=== PATIENT | female | born 1940 | race Caucasian/White ===

== ENCOUNTER → 2016-06-11 08:38 | Outpatient (CLI) | payer MEDICARE ==
[2014-05-16 15:22] VITALS: BMI 14.7
[~2016-06-11 08:38] MED LIST: IBUPROFEN200 MG PO; IPRAT-ALBUT 0.5-3 ML INH; LEVAQUIN750 MG PO; MEDROL DOSE PACK4 MG PO; MUCINEX600 MG PO
--- NOTE | 2016-06-23 08:21 | EMG ---
PATIENT:MARCO NAVA DATE OF SERVICE: 06/11/16 MEDICAL RECORD: [id number] DATE OF : 42 LOCATION: [facility] ADMISSION DATE: REFERRING PHYSICIAN: JENNA MELÉNDEZ MD INTERPRETING PHYSICIAN: THIERRY GONGORA MD DATE OF SERVICE: 06/11/[address] Meléndez as an outpatient. DATE OF EXAMINATION: 06/11/2016 ELECTROMYOGRAPHIC DATA: Electromyographic examination is limited to both upper extremities. In the right upper extremity, right median motor stimulation elicits a compound motor action potential with a distal latency of 2.8 milliseconds, peak amplitude of 9 millivolts and calculated conduction velocity of 54 meters per second. Right ulnar motor stimulation elicits a compound motor action potential with a distal latency of 2.8 milliseconds, peak amplitude of 7 millivolts, and calculated conduction velocity of 70 meters per second. Right ulnar motor stimulation across the elbow fails to elicit evidence of conduction block at this level. Antidromic right median sensory stimulation elicits a response with a distal latency of 3.3 milliseconds, amplitude of 15 microvolts and calculated conduction velocity of 56 meters per second. Antidromic right ulnar sensory stimulation elicits a response with a distal latency of 3.4 milliseconds, amplitude of 19 microvolts and calculated conduction velocity of 65 meters per second. The right median F wave has a latency of 25 milliseconds. In the left upper extremity, left median motor stimulation elicits a compound motor action potential with a distal latency of 3.2 milliseconds, peak amplitude of 8 millivolts and calculated conduction velocity of 62 meters per second. Left ulnar motor stimulation elicits a compound motor action potential with a distal latency of 2.6 milliseconds, peak amplitude of 6 millivolts, and calculated conduction velocity of 58 meters per second. Left ulnar motor stimulation across the elbow fails to elicit evidence of conduction block at this level. Antidromic left median sensory stimulation elicits a response with a distal latency of 3.2 milliseconds, amplitude of 11 microvolts and calculated conduction velocity of 62 meters per second. Antidromic left ulnar sensory stimulation elicits a response with a distal latency of 3.4 milliseconds, amplitude of 8 microvolts and calculated conduction velocity of 58 meters per second. The left median F wave has a latency of 26 milliseconds. Needle electrode examination is limited to both upper extremities as well. Muscles interrogated include the abductor pollicis brevis, first dorsal interosseous, abductor digiti minimi, pronator teres, biceps brachii, triceps and deltoid. There is no abnormality of insertional activity and no abnormal spontaneous activity is seen in all muscles interrogated. Motor unit potential morphology and the pattern of motor unit potential firing and recruitment is normal in all muscles sampled. INTERPRETATION: Electromyographic examination of both upper extremities is normal. There is no electrical evidence of a cervical radiculopathy or other lesion of the lower motor neuron in the upper extremities at this time. There is no evidence of active denervation. ELECTROMYGRAM/NERVE CONDUCTION [id number] MARCO NAVA TRANSINT:[id number] Voice Confirmation ID: [id number] DOCUMENT ID: [id number] THIERRY GONGORA MD at 0821 CC: [id number] DICTATION DATE: 06/11/1632 SUPERVISOR TICKET SALES: 06/12/16 0039 DEP CLI 06/11/16 [id number] [place] [address]
== END | disposition home or self-care (01) ==
LOC: D.CN 04-28 08:30
DX: G60.3 Idiopathic progressive neuropathy (principal)

== ENCOUNTER → 2016-09-01 07:13 | Outpatient (CLI) | payer MEDICARE ==
[2014-05-16 15:22] VITALS: BMI 14.7
[2016-09-01 07:44] LABS: BASOPHILS 0.4 % (0-2); EOSINOPHILS 1.3 % (0-7); HEMOGLOBIN 14.1 g/dL (12-16); IMMATURE GRANULOCYTES 0.1 % (0-5); MCH 29.5 pg (26.0-34.0); MCV 92.1 fL (80.0-100.0); MEAN PLATELET VOLUME 9.6 fL (7.4-10.4); MONOCYTES 8.4 % (2-11); NEUTROPHILS 67.8 % (40-80); PLATELET COUNT 306 10x3/uL (130-400); RBC 4.78 10x6/uL (4.00-5.40); RDW 13.5 % (11.5-14.5); WBC 6.8 10x3/uL (4.8-10.8)
[2016-09-01 08:15] LABS: ALBUMIN 3.6 g/dL (3.4-5.0); ANION GAP 9.4 mmol/L (8-16); BILIRUBIN - TOTAL 0.53 mg/dL (0.2-1.3); CALCIUM 9.1 mg/dL (8.5-10.1); CREATININE - SERUM 0.8 mg/dL (0.6-1.3); POTASSIUM - SERUM 3.4 mmol/L (3.5-5.1); PROTEIN - SERUM 7.1 g/dL (6.4-8.2); T4 THYROXINE 11.1 ug/dL (4.7-13.3); THYROID STIMULATING HORMONE 0.41 uIU/mL (0.36-3.74)
[2016-09-02 08:21] LABS: RAPID PLASMA REAGIN Non Reactive (Non Reactive)
[2016-09-02 10:20] LABS: FOLATE (FOLIC ACID) - SERUM 19.3 ng/mL (>3.0)
== END | disposition home or self-care (01) ==
LOC: D.LAB 07:13 → D.MRI 08:30
PROVIDERS: Psychiatry & Neurology Neurology
DX: R29.2 Abnormal reflex (principal); R20.1 Hypoesthesia of skin

== ENCOUNTER → 2016-09-07 12:32 | Outpatient (CLI) | payer MEDICARE ==
[2014-05-16 15:22] VITALS: BMI 14.7
== END | disposition home or self-care (01) ==
LOC: D.RAD 12:32
DX: M48.02 Spinal stenosis, cervical region (principal)

== ENCOUNTER 2016-09-29 05:05 | Inpatient (IN) | payer MEDICARE ==
[2016-09-28 17:36] LABS: BASOPHILS 0.4 % (0-2); EOSINOPHILS 0.9 % (0-7); HEMATOCRIT 48.3 % (36.0-48.0); HEMOGLOBIN 15.8 g/dL (12-16); IMMATURE GRANULOCYTES 0.2 % (0-5); LYMPHOCYTES 23.8 % (15-50); MCHC 32.7 g/dL (31.0-37.0); MCV 91.7 fL (80.0-100.0); MEAN PLATELET VOLUME 9.9 fL (7.4-10.4); MONOCYTES 7.6 % (2-11); NEUTROPHILS 67.1 % (40-80); RBC 5.27 10x6/uL (4.00-5.40); RDW 13.2 % (11.5-14.5); WBC 10.1 10x3/uL (4.8-10.8)
[2016-09-28 18:14] LABS: PLATELET COUNT 372 10x3/uL (130-400)
[2016-09-28 18:15] LABS: APPEARANCE CLEAR (CLEAR); BILIRUBIN NEGATIVE (NEGATIVE); COLOR YELLOW (YELLOW); GLUCOSE NEGATIVE (NEGATIVE); KETONE NEGATIVE (NEGATIVE); LEUKOCYTE ESTERASE 2+ (NEGATIVE); NITRITE NEGATIVE (NEGATIVE); PROTEIN NEGATIVE (NEGATIVE); UROBILINOGEN NORMAL (NORMAL)
[2016-09-28 18:22] LABS: BACTERIA FEW /hpf (NONE SEEN); EPITHELIAL CELLS 0-5 /hpf (0-5); RED CELLS - URINE 0-5 /hpf (0-5)
[2016-09-28 18:39] LABS: CALC OSMOLALITY 277 mosm/kg (275-300); CALCIUM 10.2 mg/dL (8.5-10.1); CARBON DIOXIDE 26.9 mmol/L (21.0-32.0); CHLORIDE - SERUM 101 mmol/L (98-107); CREATININE - SERUM 0.6 mg/dL (0.6-1.3); GLUCOSE 90 mg/dL (74-106); POTASSIUM - SERUM 4.5 mmol/L (3.5-5.1); SODIUM 140 mmol/L (136-145); UREA NITROGEN 9 mg/dL (7-18); eGFR NON AFRICAN AMERICAN > 90 mL/min (90-120)
[2016-09-29] VITALS (20 sets, daily range): BP systolic 123–172; BP diastolic 53–78; BMI 15.4; BMI 16.6
[~2016-09-29] VITALS: Ht 160 cm; Wt 43.5 kg
[~2016-09-29 05:05] MED LIST changes: +SYMBICORT 80-10.2 GM INH
[2016-09-30] VITALS (13 sets, daily range): BP systolic 106–155; BP diastolic 45–68; Ht 160 cm; Wt 43.5 kg
[2016-09-30 03:21] LABS: BASOPHILS 0.1 % (0-2); EOSINOPHILS 0 % (0-7); IMMATURE GRANULOCYTES 0.3 % (0-5); LYMPHOCYTES 6.3 % (15-50); MCH 29.7 pg (26.0-34.0); MCV 90.1 fL (80.0-100.0); MEAN PLATELET VOLUME 9.6 fL (7.4-10.4); NEUTROPHILS 86.3 % (40-80); PLATELET COUNT 323 10x3/uL (130-400); RBC 4.24 10x6/uL (4.00-5.40); RDW 12.9 % (11.5-14.5)
[2016-09-30 03:24] LABS: HEMATOCRIT 38.2 % (36.0-48.0); HEMOGLOBIN 12.6 g/dL (12-16); WBC 14.5 10x3/uL (4.8-10.8)
[2016-09-30 03:27] LABS: CALC OSMOLALITY 277 mosm/kg (275-300); CALCIUM 8.4 mg/dL (8.5-10.1); CARBON DIOXIDE 28.3 mmol/L (21.0-32.0); CHLORIDE - SERUM 104 mmol/L (98-107); CREATININE - SERUM 0.6 mg/dL (0.6-1.3); GLUCOSE 131 mg/dL (74-106); SODIUM 138 mmol/L (136-145); eGFR NON AFRICAN AMERICAN > 90 mL/min (90-120)
[2016-09-30 03:30] LABS: UREA NITROGEN 12 mg/dL (7-18)
[2016-10-01] VITALS: BP 132/53
[2016-10-01 04:00] VITALS: BP 134/56
[2016-10-01 05:21] LABS: BASOPHILS 0.2 % (0-2); EOSINOPHILS 0.2 % (0-7); HEMATOCRIT 38.6 % (36.0-48.0); HEMOGLOBIN 12.9 g/dL (12-16); IMMATURE GRANULOCYTES 0.2 % (0-5); LYMPHOCYTES 12.1 % (15-50); MCH 30.3 pg (26.0-34.0); MCHC 33.4 g/dL (31.0-37.0); MCV 90.6 fL (80.0-100.0); MEAN PLATELET VOLUME 9.7 fL (7.4-10.4); MONOCYTES 8.8 % (2-11); NEUTROPHILS 78.5 % (40-80); PLATELET COUNT 286 10x3/uL (130-400); RBC 4.26 10x6/uL (4.00-5.40); RDW 12.9 % (11.5-14.5); WBC 11.7 10x3/uL (4.8-10.8)
[2016-10-01 05:28] LABS: CALC OSMOLALITY 274 mosm/kg (275-300); CALCIUM 8.9 mg/dL (8.5-10.1); CARBON DIOXIDE 29.7 mmol/L (21.0-32.0); CHLORIDE - SERUM 102 mmol/L (98-107); CREATININE - SERUM 0.7 mg/dL (0.6-1.3); GLUCOSE 103 mg/dL (74-106); POTASSIUM - SERUM 3.9 mmol/L (3.5-5.1); SODIUM 137 mmol/L (136-145); UREA NITROGEN 15 mg/dL (7-18); eGFR NON AFRICAN AMERICAN 86 mL/min (90-120)
[2016-10-01] MEDS ORDERED: ROBAXIN-750750 MG PO (07:08)
[2016-10-01] MEDS ORDERED: ZOFRAN4 MG PO (07:10)
[2016-10-01] MEDS ORDERED: VALIUM 2 MG TAB2 MG PO (07:10)
[2016-10-01] MEDS ORDERED: HYDROCODON-ACE1 EAC7 PO (07:16)
[2016-10-01 08:09] VITALS: BP 147/57
--- NOTE | 2016-10-07 06:27 | OP ---
PATIENT NAME: DONNA NAVA MEDICAL RECORD: [id number] :42 LOCATION:[facility] [address] ADMISSION DATE:09/29/16 SURGEON: NAN BRAR MD OPERATION DATE: 09/29/16 PREOPERATIVE DIAGNOSIS: Cervical myelopathy. POSTOPERATIVE DIAGNOSIS: Cervical myelopathy. PROCEDURE PERFORMED: 1. Posterior segmental instrumentation in form of bilateral lateral mass screw fixation from C3 to C6. 2. Posterolateral arthrodesis at the bilateral facet joints at C3-4, C4-5, C5-6. 3. Wide laminectomy for spinal canal decompression from C3 to C6. SPECIMEN: None. ESTIMATED BLOOD LOSS: 175 milliliters. FINDINGS: SSEP neuromonitoring remained stable throughout the procedure. IMPLANTS: Alphatec Solanas posterior cervical system with 3.5 x 14 millimeter screws on the right side from C3 to C6 as well as on the left side at C3 and C4 and 3.5 x 12 millimeter screws at C5 and C6 on the left side. COMPLICATIONS: None apparent. HISTORY: Donna Mi is a pleasant 76-year-old female who presented as an outpatient with signs and symptoms consistent with cervical myelopathy. Cervical MRI demonstrated significant cervical stenosis from C3 to C6. Extensive discussion with Ms. Mi regarding her imaging findings, presentation, risks, benefits, and options of continued conservative therapy versus operative intervention in the form of a cervical laminectomy/decompression with fixation and fusion. She understood and ultimately chose to undergo operative intervention. The risks and benefits were discussed with her in detail preoperatively. PROCEDURE IN DETAIL: Ms. Mi with identified by the anesthesia team, transported to the operative therapy with general endotracheal anesthesia commences and all appropriate lines and tubes were placed. I applied the Watson skull fixation pins and she was gently transferred over in the prone position on the operative bed on chest bolsters. Arms are placed down along her side in anatomical fashion. Pressure points are padded. The Watson fixation clamp was securely attached to the table in the appropriate alignment. By using lateral fluoroscopy, a standard posterior cervical midline incision was marked. A small line of hair was clipped with the electric clippers. The area was prepped and draped in the usual sterile fashion. A timeout was performed and agreed to by those present prior to the start of the procedure. The patient did receive 10 milligrams IV dexamethasone and preoperative antibiotics prior to the start of the procedure. I did discuss with the anesthesia team the maintenance of mean arterial pressures greater than 75 throughout the procedure. After infiltration of 1% Lidocaine with epinephrine, a 10 blade was used to score the skin and Bovie electrocautery was used to perform a standard midline posterior cervical approach and the spinous processes and laminar facets from C3 to C6 were exposed and self-retaining retractors were placed. Using the high speed matchstick drill, aerial applicator pilot points were drilled under lateral fluoroscopy for screw placement, for standard trajectory lateral mass screws from C3 to C6 bilaterally. OPERATIVE REPORT [id number] DONNA NAVA Using a drill set to 14 millimeters with the drill guide and screw tracks were predrilled and the first approximate 5 millimeters of each screw track was then tapped with a 3.5 millimeter tap. The screw tracks were filled with Surgiflo hemostatic matrix and the high speed matchstick drill was used to drill laminectomy troughs bilaterally. Using a combination of Leksell rongeurs and Kerrison rongeurs the C3 through C6 lamina were removed. A copious amount of irrigation was used to irrigate the field and a small amount of epidural hemorrhage was addressed with a combination of bipolar electrocautery and Surgiflo hemostatic matrix. The laminectomy edges were smoothened with the Kerrison rongeurs. There was no significant hemorrhage. The previously mentioned lateral mass screws of the appropriate and previously mentioned sizes were then placed from C3 to C6 bilaterally without incident. A johnson was then measured and cut to size and bent appropriately. By using high speed matchstick drill, the facet joints at C3-4, C4-5, C5-6 were decorticated bilaterally and laminectomy bone which had been stripped free of its soft tissue and morselized with the high speed bone [id number] was then implanted into these facet joints for arthrodesis. The rods were then laid into place over the lateral mass screws and set screws were then delivered and final tightened without incident. Copious amount of irrigation was used prior to implantation of the autograft. There was no significant hemorrhage prior to closure and two 10 [place] round drains were tunneled inferiorly away from the incision and the fascia was cl osed with interrupted 0 Vicryl sutures. Prior to closure of the fascia, approximately half of a gram of vancomycin powder sprinkled in the subfascial space. Another half of a gram was then sprinkled in the suprafascial space. The subdermal layer was reapproximated inverted interrupted 2-0 Vicryl sutures and the skin was closed with ed. The drains were sutured in place with Vicryl sutures. Sterile wet and dry dressings were used to clean incision, antibiotic ointment and sterile dressing was then applied. I took the patient out of pins prior to gently rolling her back into the supine position where she was returned to the anesthesia team for reversal and extubation. There were no changes in SSEP throughout the procedure. All sponge and needle counts were correct times two at the end of the case. I updated her family member immediately postoperative regarding the course of the procedure and all questions were answered. NAN BRAR MD at 0627 CC: [id number] DICTATION DATE: 10/06/16 1200 BUS OR TRUCK GARAGE MECHANIC: MARIA E 10/06/16 1944 DIS IN 10/01/16 [facility] [address] [place] [address]
--- NOTE | 2016-11-07 09:03 | DS ---
PATIENT:SHAYNE NAVA :[birth year] MEDICAL RECORD: [id number] DISCHARGE SUMMARY ADMISSION DATE: 09/29/16 DISCHARGE DATE: 10/01/16 CHIEF COMPLAINT: C3 through C6 cervical myelopathy. HOSPITAL COURSE AND TREATMENT: This lady tolerated the above C3 through C6 decompression and fixation without complications. She was in ICU overnight. Her incision remained clean, dry and intact. She had bilateral equal refrigeration service technician. Pain control was sufficient. She had minimal output from her drain. DISCHARGE DESTINATION: Home, discontinued drain, with the following restrictions, no lifting more than 4 pounds, no driving for 4 weeks. FOLLOWUP: In clinic in 2 weeks for suture removal and wound check. See Dr. Andrade back in 4 weeks with AP and lateral of cervical spine. PROCEDURE: C3 through C6 PCDF. TRANSINT:[id number] Voice Confirmation ID: [id number] DOCUMENT ID: [id number] Dictated By: TRUONG AIKEN I have interviewed/examined the above patient and agree with these documented findings. NAN ANDRADE MD at 0903 at 1504 CC: [id number] DICTATION DATE: 11/02/16 1036 SHINGLE INSPECTOR: 11/02/16 1111 DIS IN 10/01/16 [id number] [place] [address]
== END 2016-10-01 13:11 | disposition home or self-care (01) | DRG 30 ==
LOC: D.CVICU 05:05 → D.SDCHOLD 05:05 → D.MS 05:05 → D.SDCHOLD 07:30 → D.CVICU 09:15 → D.MS 09-30 15:41
PROVIDERS: ADMIT Neurological Surgery
PROC: 0RG2071 Fusion of 2 or more Cervical Vertebral Joints with Autologous Tissue Substitute, Posterior Approach, Posterior Column, Open Approach (ICD-10-PCS; principal; 2016-09-29 07:30)
DX: G54.2 Cervical root disorders, not elsewhere classified (principal); M48.02 Spinal stenosis, cervical region

== ENCOUNTER 2018-03-07 15:08 | Inpatient (IN) | payer MEDICARE ==
[~2018-03-07] VITALS: Ht 160 cm; Wt 42.3 kg
--- NOTE | ~2018-03-07 | MORECARE ---
CASE MANAGEMENT DISCHARGE SUMMARY PATIENT: SHAYNE NAVA UNIT: [id number] ADM DATE: 03/07/18 AGE: 78 : 41 SEX: F ROOM/BED: D.210 AUTHOR: ROSA,DOC PHYSICIAN: REFERRING PHYSICIAN: JENNA MELÉNDEZ MD DATE OF SERVICE: 03/13/18 Discharge Plan Patient Name: SHAYNE NAVA Facility: [facility]:[place] : 1940 Planned Disposition: Home Anticipated Discharge Date: 03/13/18 Discharge Date: 03/13/2018 Expected LOS: 6 Initial Reviewer: [email or web address] Initial Review Date: 03/13/2018 Generated: 03/13/18 6:07 pm Comments DCP- Discharge Planning Updated by [email or web address]: Leoncio Daniels on 03/13/18 4:[address] Patient Name: SHAYNE NAVA Admission Status: ER Accout number: [id number] Admission Date: 03-07-2018 : 1940 Admission Diagnosis:COUGH Attending: JENNA MELÉNDEZ Current LOS: 6 Anticipated DC Date: 03-13-2018 Planned Disposition: Home Primary Insurance: MEDICARE A & B Discharge Planning Comments: CM MET WITH PT IN ROOM TO DISCUSS DISCHARGE PLANNING AND NEEDS. PT REPORTS LIVING AT HOME INDEPENDENTLY AND ALONE. PT'S SON LIVES DIRECTLY NEXT DOOR FROM PT AND IS AVAILABLE TO ASSIST AT ANY TIME IF NECESSARY. PT HAS CANE, NEBULIZER AND HOME / PORTABLE OXGYEN FROM [employer]. PT HAS OUTSIDE SERVICES ASSISTING IN THE HOME. CM DISCUSSED AVAILABILITY OF HOME HEALTH, REHAB SERVICES AND MEDICAL EQUIPMENT. PT DENIES DISCHARGE NEEDS, REPORTS HER SON WILL PICK HER UP FOR DISCHARGE HOME. IMPORTANT MESSAGE FROM MEDICARE PROVIDED AND EXPLAINED. CAREER GUIDANCE TECHNICIAN NURSE NOTIFIED. Safety Fire Boss: Leoncio Daniels DCPIA - Discharge Planning Initial Assessment Updated by [email or web address]: Leoncio Daniels on 03/13/18 5:00 pm * Is the patient Alert and Oriented? Yes * How many steps to enter\exit or inside your home? * PCP DR. MELÉNDEZ * Pharmacy [facility] * Preadmission Environment Home Alone * ADLs Independent * Equipment Cane Nebulizer Oxygen * Other Equipment HOME AND PORTABLE OXYGEN [employer] - MEDICAL EQUIPMENT PROVIDER * List name and contact numbers for known caregivers / representatives who currently or will assist patient after discharge: MARTY NAVA, MAXX, * Verbal permission to speak to the caregivers and representatives has been obtained from the patient. Yes * Community resources currently utilized None * Please name any agencies selected above. NONE * Additional services required to return to the preadmission environment? No * Can the patient safely return to the preadmission environment? Yes * Has this patient been hospitalized within the prior 30 days at any hospital? No Coverage Notice Reviewer: [id number] Natan Daniels Notice Issued Date-Time: 03/13/2018 10:30 Notice Type: IM Discharge Notice Notice Delivered To: Patient Relationship to Patient: Mounter Clarinets Name: Delivery Method: HAND - Hand Delivered Natacha Days: Prior Verbal Notification: Recipient Understood Notice: Yes Recipient Signature: Yes Med Rec Note Co-signed by Attending: Coverage Notice Comment: Patient Name: SHAYNE NAVA Page [id number] at 1707 All edits/amendments must be made on the electronic document DICTATION DATE: 03/13/181706 ENVIRONMENTAL QUALITY ANALYST: MARIA E 03/13/181706 RPT#: [id number] DC DATE:03/13/18 STATUS: DIS IN [facility] [address] [place] [address] END OF REPORT
--- NOTE | ~2018-03-07 | HP ---
PATIENT: SHAYNE NAVA MEDICAL RECORD: [id number] ACCOUNT: [id number] LOCATION:[address] : [birth year] ADMISSION DATE: 03/07/18 PCP: JENNA MELÉNDEZ MD HISTORY AND PHYSICAL EXAMINATION DATE OF ADMISSION: 03/07/2018 CHIEF COMPLAINT: Cough, congestion, left flank pain. HISTORY OF PRESENT ILLNESS: This is a 78-year-old female who is followed by Dr. Meléndez with a history of COPD, who was brought to the Emergency Department today with acute onset of left flank pain started early yesterday morning. She also had a cough, congestion, increased shortness of breath. She thought she was passing a kidney stone, which she has done before. Workup in the ER showed left lower lobe pneumonia. White count was 36,600, she is admitted. PAST MEDICAL HISTORY: COPD. She has idiopathic peripheral neuropathy, history of kidney stones. PAST SURGICAL HISTORY: C3 through C6 posterior cervical decompression and fixation in September of [address] Andrade. ALLERGIES: PENICILLIN AND SULFA. HOME MEDICATIONS: Symbicort 80/4.5 two puffs twice a day and she takes DuoNeb via nebulizer a couple of times a day. HABITS: Former smoker, no alcohol or drugs. SOCIAL HISTORY: She is a retired nurse. She is , lives alone. Her son lives next door. FAMILY HISTORY: Father at 76 of heart problems. Mother at 78. REVIEW OF SYSTEMS: GENERAL: No major weight changes. HEENT: No particular sinus or allergy problems. RESPIRATORY: Has COPD, long history of smoking. She has quit. CARDIAC: No history of heart trouble. GASTROINTESTINAL: No history of diarrhea, constipation or reflux. GENITOURINARY: History of kidney stones. MUSCULOSKELETAL: No significant joint aches and pains. NEUROLOGIC: No migraines. No seizures. PSYCHIATRIC: No depression or melancholia. PHYSICAL EXAMINATION: VITAL SIGNS: Temperature 99.3, pulse 113, respirations 16, blood pressure was 89/50. GENERAL: She is awake and alert. She is in the Emergency Department. She is in no acute distress at this time. HEENT: Unremarkable. NECK: Supple. No JVD or bruit. HEART: Regular rate and rhythm. LUNGS: Diminished breath sounds in the bases, a few scattered wheezes. ABDOMEN: Soft. HISTORY AND PHYSICAL [id number] MARSHALL EXTREMITIES: No edema. LABORATORY DATA: Lactic acid is 2.4. CBC with a white count of 36,600, hemoglobin 15.4. Basic metabolic panel is all normal. Liver functions are all normal. D-dimer 0.48. Troponin is less than 0.017. ProBNP 1551. Chest x-ray showed no acute process; however, a CT of abdomen and pelvis was done looking for kidney stones and in the lung bases, emphysema was seen and in the left lower lobe of lungs, there was pneumonia. ASSESSMENT: 1. Left lower lobe pneumonia. 2. Chronic obstructive pulmonary disease. 3. Leukocytosis. PLAN: Admit, start IV antibiotics, respiratory care. Repeat CBC in a.m. May need further workup about that. Other tests and procedures as warranted. TRANSINT:[id number] Voice Confirmation ID: [id number] DOCUMENT ID: [id number] BJORN LOMAX MD at 0837 CC: [id number] DICTATION DATE: 03/07/182252 SPINDLE PLUMBER: 03/08/18 0050 ADM IN [facility] [address] [place] [address]
[~2018-03-07 15:08] MED LIST changes: +HYDROCODON-ACE1 EAC7 PO; +ROBAXIN-750750 MG PO; +VALIUM 2 MG TAB2 MG PO; +ZOFRAN4 MG PO
[2018-03-07 16:06] LABS: HEMATOCRIT 45.8 % (36.0-48.0); HEMOGLOBIN 15.4 g/dL (12-16); MCH 30.2 pg (26.0-34.0); MCHC 33.6 g/dL (31.0-37.0); MCV 89.8 fL (80.0-100.0); MEAN PLATELET VOLUME 10.3 fL (7.4-10.4); PLATELET COUNT 358 10x3/uL (130-400); RDW 14.2 % (11.5-14.5); WBC 36.6 10x3/uL (4.8-10.8)
[2018-03-07 16:21] LABS: ALBUMIN 3.4 g/dL (3.4-5.0); ANION GAP 17.7 mmol/L (8-16); BILIRUBIN - TOTAL 1.24 mg/dL (0.2-1.3); CALCIUM 9.7 mg/dL (8.5-10.1); CARBON DIOXIDE 25.8 mmol/L (21.0-32.0); CREATININE - SERUM 1.2 mg/dL (0.6-1.3); POTASSIUM - SERUM 4.5 mmol/L (3.5-5.1); PROTEIN - SERUM 7.1 g/dL (6.4-8.2)
[2018-03-07 16:35] LABS: EOSINOPHILS 1 % (0-7); LYMPHOCYTES 7 % (15-50); MONOCYTES 1 % (2-11); NEUTROPHILS 90 % (40-80); PLATELET ESTIMATE NORMAL
[2018-03-07 16:56] LABS: PRO BNP 1551 pg/mL (0-450); TROPONIN-I < 0.017 ng/mL (0.000-0.060)
[2018-03-07 16:57] LABS: LIPASE 45 U/L (73-393)
[2018-03-07 18:06] VITALS: BP 89/50
[2018-03-07 21:07] VITALS: BP 103/35
[2018-03-07 22:15] LABS: APPEARANCE CLEAR (CLEAR); BILIRUBIN NEGATIVE (NEGATIVE); COLOR YELLOW (YELLOW); GLUCOSE NEGATIVE (NEGATIVE); KETONE NEGATIVE (NEGATIVE); NITRITE NEGATIVE (NEGATIVE); PROTEIN TRACE mg/dL (NEGATIVE); SPECIFIC GRAVITY 1.025 (1.005-1.020); UROBILINOGEN NORMAL (NORMAL)
[2018-03-07 22:16] LABS: BACTERIA MANY /hpf (NONE SEEN); EPITHELIAL CELLS 0-5 /hpf (0-5); RED CELLS - URINE OCC /hpf (0-5)
[2018-03-07] MEDS ORDERED: SYMBICORT 80-10.2 GM INH (22:43)
[2018-03-07] MEDS ORDERED: ACETAMINOPHEN500 M1 PO (22:43)
[2018-03-08] VITALS (8 sets, daily range): BP systolic 76–120; BP diastolic 34–49; Ht 160 cm; Wt 42.3 kg
[2018-03-08 05:47] LABS: BASOPHILS 0.1 % (0-2); EOSINOPHILS 0 % (0-7); HEMATOCRIT 35.2 % (36.0-48.0); HEMOGLOBIN 11.6 g/dL (12-16); IMMATURE GRANULOCYTES 0.9 % (0-5); LYMPHOCYTES 3.5 % (15-50); MCH 29.4 pg (26.0-34.0); MCV 89.3 fL (80.0-100.0); MEAN PLATELET VOLUME 10.2 fL (7.4-10.4); MONOCYTES 3.2 % (2-11); NEUTROPHILS 92.3 % (40-80); PLATELET COUNT 268 10x3/uL (130-400); RBC 3.94 10x6/uL (4.00-5.40); RDW 14.4 % (11.5-14.5)
[2018-03-08 06:07] LABS: CALCIUM 7.8 mg/dL (8.5-10.1); CARBON DIOXIDE 25.8 mmol/L (21.0-32.0)
[2018-03-08 06:09] LABS: POTASSIUM - SERUM 3.8 mmol/L (3.5-5.1)
[2018-03-09 03:55] VITALS: BP 110/59
[2018-03-09 05:24] LABS: BASOPHILS 0.1 % (0-2); EOSINOPHILS 1.4 % (0-7); HEMATOCRIT 32.3 % (36.0-48.0); HEMOGLOBIN 10.5 g/dL (12-16); IMMATURE GRANULOCYTES 0.2 % (0-5); LYMPHOCYTES 6.8 % (15-50); MCH 29.1 pg (26.0-34.0); MCHC 32.5 g/dL (31.0-37.0); MCV 89.5 fL (80.0-100.0); MEAN PLATELET VOLUME 10.1 fL (7.4-10.4); MONOCYTES 3.8 % (2-11); NEUTROPHILS 87.7 % (40-80); PLATELET COUNT 239 10x3/uL (130-400); RBC 3.61 10x6/uL (4.00-5.40); RDW 14.5 % (11.5-14.5)
[2018-03-09 05:37] LABS: WBC 16.2 10x3/uL (4.8-10.8)
[2018-03-09 05:49] LABS: CALCIUM 7.7 mg/dL (8.5-10.1); CARBON DIOXIDE 27.6 mmol/L (21.0-32.0); CHLORIDE - SERUM 104 mmol/L (98-107); GLUCOSE 87 mg/dL (74-106); POTASSIUM - SERUM 3.4 mmol/L (3.5-5.1); SODIUM 140 mmol/L (136-145)
[2018-03-09 05:57] LABS: CALC OSMOLALITY 277 mosm/kg (275-300); CREATININE - SERUM 0.6 mg/dL (0.6-1.3); UREA NITROGEN 13 mg/dL (7-18); eGFR NON AFRICAN AMERICAN > 90 mL/min (90-120)
[2018-03-09 07:41] VITALS: BP 122/60
[2018-03-09 08:11] LABS: % SATURATION 6 % (15-55); IRON 7 ug/dl (35-150); TOTAL IRON BIND CAPACITY 104 ug/dl (260-445); UNSAT IRON BIND CAPACITY 97 ug/dl (150-375)
[2018-03-09 11:27] VITALS: BP 94/46
[2018-03-09 15:38] VITALS: BP 101/54
[2018-03-09 21:54] VITALS: BP 107/54
[2018-03-10] VITALS (7 sets, daily range): BP systolic 109–157; BP diastolic 48–80
[2018-03-10 03:46] LABS: BASOPHILS 0 % (0-2); EOSINOPHILS 0 % (0-7); HEMATOCRIT 32.9 % (36.0-48.0); HEMOGLOBIN 10.7 g/dL (12-16); IMMATURE GRANULOCYTES 0.4 % (0-5); LYMPHOCYTES 3.6 % (15-50); MCH 28.9 pg (26.0-34.0); MCHC 32.5 g/dL (31.0-37.0); MCV 88.9 fL (80.0-100.0); MEAN PLATELET VOLUME 10.2 fL (7.4-10.4); MONOCYTES 1.8 % (2-11); NEUTROPHILS 94.2 % (40-80); PLATELET COUNT 259 10x3/uL (130-400); RDW 14.1 % (11.5-14.5)
[2018-03-10 03:47] LABS: WBC 7.7 10x3/uL (4.8-10.8)
[2018-03-10 03:59] LABS: CALC OSMOLALITY 278 mosm/kg (275-300); CALCIUM 8.3 mg/dL (8.5-10.1); CARBON DIOXIDE 30.7 mmol/L (21.0-32.0); CHLORIDE - SERUM 101 mmol/L (98-107); CREATININE - SERUM 0.5 mg/dL (0.6-1.3); POTASSIUM - SERUM 3.7 mmol/L (3.5-5.1); SODIUM 137 mmol/L (136-145); UREA NITROGEN 12 mg/dL (7-18); eGFR NON AFRICAN AMERICAN > 90 mL/min (90-120)
[2018-03-10 04:04] LABS: GLUCOSE 184 mg/dL (74-106)
[2018-03-11 03:50] VITALS: BP 138/68
[2018-03-11 05:57] LABS: CALC OSMOLALITY 282 mosm/kg (275-300); CALCIUM 8.3 mg/dL (8.5-10.1); CARBON DIOXIDE 31.6 mmol/L (21.0-32.0); CHLORIDE - SERUM 104 mmol/L (98-107); CREATININE - SERUM 0.5 mg/dL (0.6-1.3); GLUCOSE 163 mg/dL (74-106); POTASSIUM - SERUM 3.8 mmol/L (3.5-5.1); SODIUM 140 mmol/L (136-145); UREA NITROGEN 12 mg/dL (7-18); eGFR NON AFRICAN AMERICAN > 90 mL/min (90-120)
[2018-03-11 06:07] LABS: BASOPHILS 0 % (0-2); EOSINOPHILS 0.1 % (0-7); HEMATOCRIT 31.2 % (36.0-48.0); HEMOGLOBIN 10.2 g/dL (12-16); IMMATURE GRANULOCYTES 1.3 % (0-5); LYMPHOCYTES 5.5 % (15-50); MCH 28.9 pg (26.0-34.0); MCHC 32.7 g/dL (31.0-37.0); MCV 88.4 fL (80.0-100.0); MEAN PLATELET VOLUME 10.3 fL (7.4-10.4); MONOCYTES 5.2 % (2-11); NEUTROPHILS 87.9 % (40-80); PLATELET COUNT 291 10x3/uL (130-400); RBC 3.53 10x6/uL (4.00-5.40); RDW 14.2 % (11.5-14.5); WBC 7.9 10x3/uL (4.8-10.8)
[2018-03-11 08:06] VITALS: BP 153/77
[2018-03-11 11:04] VITALS: BP 166/73
[2018-03-11 15:50] VITALS: BP 178/85
[2018-03-11 19:45] VITALS: BP 173/72
[2018-03-11 23:55] VITALS: BP 155/64
[2018-03-12 03:45] VITALS: BP 112/70
[2018-03-12 04:44] LABS: BASOPHILS 0.1 % (0-2); EOSINOPHILS 0 % (0-7); HEMATOCRIT 32.8 % (36.0-48.0); HEMOGLOBIN 10.8 g/dL (12-16); IMMATURE GRANULOCYTES 3.9 % (0-5); LYMPHOCYTES 5.6 % (15-50); MCHC 32.9 g/dL (31.0-37.0); MCV 87.9 fL (80.0-100.0); MEAN PLATELET VOLUME 9.8 fL (7.4-10.4); NEUTROPHILS 78.4 % (40-80); PLATELET COUNT 338 10x3/uL (130-400); RBC 3.73 10x6/uL (4.00-5.40); RDW 13.8 % (11.5-14.5); WBC 9.6 10x3/uL (4.8-10.8)
[2018-03-12 04:49] LABS: CALC OSMOLALITY 281 mosm/kg (275-300); CALCIUM 8.1 mg/dL (8.5-10.1); CHLORIDE - SERUM 100 mmol/L (98-107); CREATININE - SERUM 0.5 mg/dL (0.6-1.3); GLUCOSE 170 mg/dL (74-106); SODIUM 139 mmol/L (136-145); UREA NITROGEN 13 mg/dL (7-18); eGFR NON AFRICAN AMERICAN > 90 mL/min (90-120)
[2018-03-12 04:51] LABS: POTASSIUM - SERUM 2.9 mmol/L (3.5-5.1)
[2018-03-12 08:15] VITALS: BP 142/69
[2018-03-12 11:34] VITALS: BP 174/70
[2018-03-12 16:08] VITALS: BP 145/67
[2018-03-12 19:55] VITALS: BP 146/57
[2018-03-12 23:55] VITALS: BP 165/70
[2018-03-13 04:00] VITALS: BP 148/69
[2018-03-13 05:01] LABS: CALC OSMOLALITY 282 mosm/kg (275-300); CALCIUM 7.5 mg/dL (8.5-10.1); CARBON DIOXIDE 34.6 mmol/L (21.0-32.0); CHLORIDE - SERUM 102 mmol/L (98-107); CREATININE - SERUM 0.5 mg/dL (0.6-1.3); GLUCOSE 154 mg/dL (74-106); POTASSIUM - SERUM 4.2 mmol/L (3.5-5.1); SODIUM 140 mmol/L (136-145); UREA NITROGEN 15 mg/dL (7-18); eGFR NON AFRICAN AMERICAN > 90 mL/min (90-120)
[2018-03-13] MEDS ORDERED: PROTONIX40 MG PO (07:53)
[2018-03-13] MEDS ORDERED: MUCINEX DM ER1 EAC1 PO (07:54)
[2018-03-13] MEDS ORDERED: DALIRESP500 MCG PO (07:54)
[2018-03-13] MEDS ORDERED: BENZONATATE200 MG PO (07:55)
[2018-03-13] MEDS ORDERED: PROMETHAZINE W473 ML PO (07:55)
[2018-03-13] MEDS ORDERED: FLUTICASONE PRO16 GM NASAL (07:56)
[2018-03-13] MEDS ORDERED: IPRAT-ALBUT 0.5-3 ML INH (07:57)
[2018-03-13] MEDS ORDERED: LEVAQUIN750 MG PO (07:58)
[2018-03-13] MEDS ORDERED: PREDNISONE20 MG PO (08:03)
[2018-03-13 08:26] VITALS: BP 110/53
[2018-03-17] MEDS ORDERED: XANAX0.25 MG PO (13:05)
== END 2018-03-13 13:50 | disposition home or self-care (01) | DRG 178 ==
LOC: D.ER 15:08 → D.M2 18:58 → D.EDHOLD 18:58 → D.M2 19:23
PROVIDERS: Family Medicine
DX: J15.6 Pneumonia due to other Gram-negative bacteria (principal); J44.0 Chronic obstructive pulmonary disease with (acute) lower respiratory infection; R04.2 Hemoptysis; J44.1 Chronic obstructive pulmonary disease with (acute) exacerbation; J69.0 Pneumonitis due to inhalation of food and vomit; J13 Pneumonia due to Streptococcus pneumoniae; Z99.81 Dependence on supplemental oxygen; D50.9 Iron deficiency anemia, unspecified; E87.6 Hypokalemia; J30.9 Allergic rhinitis, unspecified; E83.51 Hypocalcemia; Z87.891 Personal history of nicotine dependence

== ENCOUNTER 2018-03-17 15:46 | Inpatient (IN) | payer MEDICARE ==
[~2018-03-17] VITALS: Ht 160 cm; Wt 41.7 kg
--- NOTE | ~2018-03-17 | RHP ---
PATIENT: SHAYNE NAVA MEDICAL RECORD: [id number] ACCOUNT: [id number] LOCATION:[facility] : [birth year] ADMISSION DATE: 03/17/18 REHABILITATION HISTORY AND PHYSICAL EXAMINATION POST ADMISSION PHYSICIAN EXAMINATION POST-ADMISSION PHYSICAL EXAMINATION AND HISTORY AND PHYSICAL ADMITTING DIAGNOSES: Left lower lobe pneumonia. HISTORY OF PRESENT ILLNESS: The patient is an elderly female who presents secondary to a left lower lobe pneumonia. She presented to ED after 2 days from discharge from the acute hospital. She is not getting meds until over 24 hours after discharge, she had been anxious and weak at that point, she was brought back. She was having left flank pain. Workup in the ER showed she had a left lower lobe pneumonia. White count was 36,000. The patient is O2 dependent for 3 years. She has idiopathic peripheral neuropathy, history of back problems. She also has a history of tobacco use since she was 17. She quit about 3 years ago, but does continue to vape and have secondhand smoke exposure. She was admitted on 03/10/2018 after developing some nausea, vomiting, and black emesis. The patient developed some increasing shortness of breath, increased wheezing, dyspnea with activity. She did have some orthopnea. She does sleep on 2 pillows. The patient had increased cough that was productive of yellow sputum, but difficult to expectorate. The patient does have some history of rhinitis and congestion. The patient has all these other comorbidities, which require management at this time in order to work on getting her home. She does have self-care deficit. She lives alone, impaired mobility. She has continued respiratory management problems. Prior to this illness, she was living completely independent at home. She was independent with ADLs and only used cane to ambulate, currently ambulating 10 feet with a rolling walker, is very weak and has poor balance and endurance. She is mid to mod assist for ADLs. The patient will require inpatient therapy in order to get her back to her prior level of functioning and hopefully home after a failed discharge to home earlier. COMORBIDITIES: Include COPD, left lower lobe pneumonia, hypokalemia, hypocalcemia, and leukocytosis. She is incontinent of bowel or bladder, failure of outpatient therapy, dependence on oxygen, and peripheral neuropathy. PAST MEDICAL HISTORY: Significant for neuropathy, got a history of COPD, pneumonia, chronic cough, TB exposure, chronic neck pain. PAST SURGICAL HISTORY: Includes appendectomy and back surgery. ALLERGIES: PENICILLIN AND SULFA. CURRENT MEDICATIONS: Include Daliresp 250 mcg daily; prednisone, she is on a tapering dose; Protonix 40 mg daily; Levaquin 750 mg daily; she is on Flonase nasal spray, 2 sprays daily; Advair 2 puffs b.i.d.; DuoNeb updrafts; she is on Mucinex 2 tabs b.i.d.; she is on Phenergan with codeine as needed for cough; Tessalon Perles 200 mg t.i.d.; Xanax 0.25 mg b.i.d.; Tylenol 1000 mg q.6 hours p.r.n.; and polyethylene glycol 17 grams in 8 ounces of water daily. HABITS: Does have a history of tobacco use extensively. HISTORY AND PHYSICAL [id number] SHAYNE NAVA FAMILY HISTORY: Noncontributory. SOCIAL HISTORY: The patient hopes to return back home and get back to her prior level of functioning. REVIEW OF SYSTEMS: GENERAL: Does complain of weakness and fatigue. HEENT: She does complain of cold, cough, or congestion. CARDIOVASCULAR: Denies any chest pain. LUNGS: Does complain of shortness of breath. PHYSICAL EXAMINATION: VITAL SIGNS: Stable. She is afebrile. She does noted to be tachycardic with any type of activity. GENERAL: A thin female, in no distress upon exam. HEENT: Normocephalic and atraumatic. Mucosa moist. NECK: Supple. No lymphadenopathy. LUNGS: Clear in upper saunders with decreased breath sounds in both bases with minimal air movement. CARDIOVASCULAR: Regular rate and rhythm at this time. ABDOMEN: Benign. EXTREMITIES: No clubbing, cyanosis or edema. NEUROLOGIC: She does have proximal muscle weakness. LABORATORY DATA: White count was 27,000 secondary to steroids. Her H&H are 12.5 and 37.5 and platelet count is 459. Sodium 138, potassium 4.5, BUN and creatinine of 28.0 and 0.7, blood sugar is noted to be 85. ASSESSMENT: This is a 78-year-old female patient admitted to rehab with a working diagnosis of left lower lobe pneumonia and COPD with failed outpatient therapy. The patient has potential to make improvement. We instituted the following multidisciplinary therapies including, but not limited to physical, occupational, respiratory, speech, nutritional services, prosthetics and orthotics. Given her complex medical condition and risk for more complications, rehabilitation services cannot be provided at a low level of care such a skilled nurse facility. PLAN: 1. We will admit her to [facility] rehab for intensive inpatient therapy to include the following disciplines: A. Physical therapy to improve gait, all transfer skills and bed mobility to a modified independent level. B. Occupational therapy to improve activities of daily living to a modified independent level. C. Case management to assist with discharge planning and placement options. D. Nutrition to assist with nutritional needs. E. Rehabilitation nursing to assist in monitoring the patient's underlying medical conditions and to assist with any type of bowel or bladder management. 2. The patient's current medication and medical care will be continued. 3. The patient will be placed on standard fall precautions. 4. The patient's estimated length of stay is approximately 7-10 days. 5. Discuss this patient during care team staff meeting this week. TRANSINT:[id number] Voice Confirmation ID: [id number] DOCUMENT ID: [id number] HISTORY AND PHYSICAL [id number] SHAYNE NAVA notes whether there has been none or any medical/functional change since admission: - No change since pre-admission screen. NINI attests patient continues to be appropriate for IRF: - Continues to be appropriate. AURELIA KELLER MD at 1503 CC: [id number] DICTATION DATE: 03/18/18 1041 RESIDENTIAL COUNSELOR: 03/18/18 1157 DIS IN 03/27/18 [address] [place] [address]
[~2018-03-17 15:46] MED LIST changes: +ACETAMINOPHEN500 M1 PO; +BENZONATATE200 MG PO; +DALIRESP500 MCG PO; +FLUTICASONE PRO16 GM NASAL; +MUCINEX DM ER1 EAC1 PO; +PREDNISONE20 MG PO; +PROMETHAZINE W473 ML PO; +PROTONIX40 MG PO; +XANAX0.25 MG PO
[2018-03-17 18:19] VITALS: BP 136/50; BMI 16.3
[2018-03-17 19:00] VITALS: BP 136/60
[2018-03-18 06:59] LABS: BASOPHILS 0 % (0-2); EOSINOPHILS 0 % (0-7); HEMATOCRIT 37.5 % (36.0-48.0); HEMOGLOBIN 12.5 g/dL (12-16); IMMATURE GRANULOCYTES 0.9 % (0-5); LYMPHOCYTES 2.8 % (15-50); MCH 29.1 pg (26.0-34.0); MCHC 33.3 g/dL (31.0-37.0); MCV 87.4 fL (80.0-100.0); MEAN PLATELET VOLUME 9.1 fL (7.4-10.4); MONOCYTES 7.8 % (2-11); NEUTROPHILS 88.5 % (40-80); PLATELET COUNT 459 10x3/uL (130-400); RBC 4.29 10x6/uL (4.00-5.40); RDW 15.1 % (11.5-14.5)
[2018-03-18 07:21] LABS: CALC OSMOLALITY 280 mosm/kg (275-300); CALCIUM 8.4 mg/dL (8.5-10.1); CARBON DIOXIDE 29.8 mmol/L (21.0-32.0); CHLORIDE - SERUM 100 mmol/L (98-107); CREATININE - SERUM 0.7 mg/dL (0.6-1.3); GLUCOSE 85 mg/dL (74-106); POTASSIUM - SERUM 4.5 mmol/L (3.5-5.1); SODIUM 138 mmol/L (136-145); UREA NITROGEN 28 mg/dL (7-18); eGFR NON AFRICAN AMERICAN 86 mL/min (90-120)
[2018-03-18 08:32] VITALS: BP 118/46
[2018-03-18 09:21] VITALS: Ht 160 cm; Wt 41.7 kg
[2018-03-18 19:19] VITALS: BP 121/65
[2018-03-19 08:00] VITALS: BP 156/66
[2018-03-19 21:48] VITALS: BP 114/66
[2018-03-20 07:12] LABS: BASOPHILS 0.1 % (0-2); EOSINOPHILS 0.4 % (0-7); HEMATOCRIT 36.1 % (36.0-48.0); HEMOGLOBIN 11.9 g/dL (12-16); IMMATURE GRANULOCYTES 1.3 % (0-5); LYMPHOCYTES 14.9 % (15-50); MCH 29.2 pg (26.0-34.0); MCV 88.5 fL (80.0-100.0); MEAN PLATELET VOLUME 9.1 fL (7.4-10.4); NEUTROPHILS 72.3 % (40-80); PLATELET COUNT 373 10x3/uL (130-400); RBC 4.08 10x6/uL (4.00-5.40)
[2018-03-20 07:18] LABS: CALCIUM 7.9 mg/dL (8.5-10.1); CARBON DIOXIDE 31.8 mmol/L (21.0-32.0); CHLORIDE - SERUM 101 mmol/L (98-107); POTASSIUM - SERUM 4.1 mmol/L (3.5-5.1); SODIUM 139 mmol/L (136-145)
[2018-03-20 07:19] LABS: CALC OSMOLALITY 277 mosm/kg (275-300); CREATININE - SERUM 0.5 mg/dL (0.6-1.3); GLUCOSE 69 mg/dL (74-106); UREA NITROGEN 17 mg/dL (7-18); eGFR NON AFRICAN AMERICAN > 90 mL/min (90-120)
[2018-03-20 07:21] LABS: WBC 13.5 10x3/uL (4.8-10.8)
[2018-03-20 08:13] VITALS: BP 131/59
[2018-03-20 19:00] VITALS: BP 110/59
[2018-03-21 08:35] VITALS: BP 128/55
[2018-03-21 19:00] VITALS: BP 121/61
[2018-03-22 06:59] LABS: BASOPHILS 0.1 % (0-2); EOSINOPHILS 0.8 % (0-7); HEMATOCRIT 33.3 % (36.0-48.0); IMMATURE GRANULOCYTES 1.9 % (0-5); LYMPHOCYTES 16.4 % (15-50); MCH 29.3 pg (26.0-34.0); MCV 88.8 fL (80.0-100.0); MEAN PLATELET VOLUME 8.9 fL (7.4-10.4); MONOCYTES 10.8 % (2-11); PLATELET COUNT 364 10x3/uL (130-400); RBC 3.75 10x6/uL (4.00-5.40); RDW 15.4 % (11.5-14.5); WBC 11.8 10x3/uL (4.8-10.8)
[2018-03-22 07:10] LABS: CALC OSMOLALITY 276 mosm/kg (275-300); CALCIUM 7.6 mg/dL (8.5-10.1); CARBON DIOXIDE 30.7 mmol/L (21.0-32.0); CHLORIDE - SERUM 104 mmol/L (98-107); CREATININE - SERUM 0.6 mg/dL (0.6-1.3); GLUCOSE 82 mg/dL (74-106); POTASSIUM - SERUM 3.5 mmol/L (3.5-5.1); SODIUM 140 mmol/L (136-145); eGFR NON AFRICAN AMERICAN > 90 mL/min (90-120)
[2018-03-22 07:11] LABS: UREA NITROGEN 11 mg/dL (7-18)
[2018-03-22 08:00] VITALS: BP 125/63
[2018-03-22 19:00] VITALS: BP 105/50
[2018-03-23 08:00] VITALS: BP 137/66
[2018-03-23 19:00] VITALS: BP 146/65
[2018-03-24 05:51] LABS: BASOPHILS 0.1 % (0-2); EOSINOPHILS 0.6 % (0-7); HEMATOCRIT 30.3 % (36.0-48.0); IMMATURE GRANULOCYTES 1.5 % (0-5); LYMPHOCYTES 14.6 % (15-50); MCH 29.4 pg (26.0-34.0); MCV 89.1 fL (80.0-100.0); MEAN PLATELET VOLUME 8.8 fL (7.4-10.4); MONOCYTES 10.5 % (2-11); NEUTROPHILS 72.7 % (40-80); PLATELET COUNT 338 10x3/uL (130-400); WBC 10.2 10x3/uL (4.8-10.8)
[2018-03-24 06:15] LABS: CALC OSMOLALITY 283 mosm/kg (275-300); CALCIUM 7.9 mg/dL (8.5-10.1); CARBON DIOXIDE 31.9 mmol/L (21.0-32.0); CHLORIDE - SERUM 107 mmol/L (98-107); CREATININE - SERUM 0.6 mg/dL (0.6-1.3); GLUCOSE 86 mg/dL (74-106); POTASSIUM - SERUM 3.7 mmol/L (3.5-5.1); SODIUM 143 mmol/L (136-145); UREA NITROGEN 12 mg/dL (7-18); eGFR NON AFRICAN AMERICAN > 90 mL/min (90-120)
[2018-03-24 08:00] VITALS: BP 144/69
[2018-03-24 19:00] VITALS: BP 143/71
[2018-03-25 20:00] VITALS: BP 128/69
[2018-03-26 11:28] VITALS: BP 128/61
[2018-03-27 00:15] VITALS: BP 145/43
[2018-03-27 06:53] LABS: BASOPHILS 0.1 % (0-2); EOSINOPHILS 0.6 % (0-7); HEMATOCRIT 34.3 % (36.0-48.0); IMMATURE GRANULOCYTES 0.5 % (0-5); LYMPHOCYTES 14.6 % (15-50); MCH 28.7 pg (26.0-34.0); MCHC 32.1 g/dL (31.0-37.0); MCV 89.6 fL (80.0-100.0); MEAN PLATELET VOLUME 9.1 fL (7.4-10.4); MONOCYTES 8.5 % (2-11); NEUTROPHILS 75.7 % (40-80); PLATELET COUNT 276 10x3/uL (130-400); RBC 3.83 10x6/uL (4.00-5.40); RDW 15.8 % (11.5-14.5); WBC 8.4 10x3/uL (4.8-10.8)
[2018-03-27 06:54] LABS: CARBON DIOXIDE 31.1 mmol/L (21.0-32.0); CREATININE - SERUM 0.6 mg/dL (0.6-1.3); GLUCOSE 97 mg/dL (74-106); UREA NITROGEN 6 mg/dL (7-18); eGFR NON AFRICAN AMERICAN > 90 mL/min (90-120)
[2018-03-27 07:03] LABS: CALC OSMOLALITY 275 mosm/kg (275-300); CHLORIDE - SERUM 104 mmol/L (98-107); SODIUM 139 mmol/L (136-145)
[2018-03-27 08:00] VITALS: BP 109/51
[2018-03-27] MEDS ORDERED: K-DUR20 MEQ PO (09:46)
== END 2018-03-27 17:22 | disposition home or self-care (01) | DRG 195 ==
LOC: D.REHAB 15:46
PROVIDERS: Emergency Medicine
DX: J18.9 Pneumonia, unspecified organism (principal); J44.9 Chronic obstructive pulmonary disease, unspecified; E87.6 Hypokalemia; E83.51 Hypocalcemia; D72.829 Elevated white blood cell count, unspecified; R32 Unspecified urinary incontinence; R15.9 Full incontinence of feces; G62.9 Polyneuropathy, unspecified; Z99.81 Dependence on supplemental oxygen; R53.81 Other malaise; R53.83 Other fatigue

== ENCOUNTER 2019-01-23 09:30 | Inpatient (IN) | payer MEDICARE ==
[~2019-01-23] VITALS: Ht 160 cm; Wt 46.3 kg
[~2019-01-23 09:30] MED LIST changes: +K-DUR20 MEQ PO
[2019-01-23 09:58] LABS: CALC OSMOLALITY 274 mosm/kg (275-300); CALCIUM 9.1 mg/dL (8.5-10.1); CARBON DIOXIDE 34.4 mmol/L (21.0-32.0); CHLORIDE - SERUM 101 mmol/L (98-107); CREATININE - SERUM 0.7 mg/dL (0.6-1.3); GLUCOSE 128 mg/dL (74-106); POTASSIUM - SERUM 4.7 mmol/L (3.5-5.1); SODIUM 137 mmol/L (136-145); UREA NITROGEN 10 mg/dL (7-18); eGFR NON AFRICAN AMERICAN 86 mL/min (90-120)
[2019-01-23 09:59] VITALS: BP 141/58
[2019-01-23 10:15] LABS: ALBUMIN 3.6 g/dL (3.4-5.0); ALKALINE PHOSPHATASE 57 U/L (46-116); ALT (SGPT) 13 U/L (10-68); BILIRUBIN - TOTAL 0.45 mg/dL (0.2-1.3); CKMB 1.2 U/L (0.0-3.6); CREATINE KINASE 41 UL (21-215); MAGNESIUM - SERUM 2.1 mg/dL (1.8-2.4); PROTEIN - SERUM 6.9 g/dL (6.4-8.2); TROPONIN-I < 0.017 ng/mL (0.000-0.060)
[2019-01-23 10:30] VITALS: BP 154/68
--- NOTE | 2019-01-23 10:30 | NUR ---
SITTING UPRIGHT IN BED. REPORTS NAUSEA RESOLVED. DENIES CP. VSS. FAMILY AT BS
[2019-01-23 10:44] LABS: BASOPHILS 0.1 % (0-2); EOSINOPHILS 0.3 % (0-7); HEMATOCRIT 43.4 % (36.0-48.0); IMMATURE GRANULOCYTES 0.3 % (0-5); LYMPHOCYTES 10.1 % (15-50); MCH 28.6 pg (26.0-34.0); MCHC 32.3 g/dL (31.0-37.0); MCV 88.6 fL (80.0-100.0); MONOCYTES 4.4 % (2-11); NEUTROPHILS 84.8 % (40-80); PLATELET COUNT 221 10x3/uL (130-400); RDW 13.3 % (11.5-14.5); WBC 10.3 10x3/uL (4.8-10.8)
[2019-01-23 11:10] LABS: APTT 24.2 SECONDS (22.8-39.4); INR 0.99 (0.85-1.17); PROTIME 12.6 SECONDS (11.6-15.0)
[2019-01-23 11:13] VITALS: BP 125/56
--- NOTE | 2019-01-23 11:14 | NUR ---
REPORTS NO PAIN BUT "THE NAUSEA CAME BACK"
[2019-01-23 11:16] LABS: D-DIMER-QUANTITATIVE 2.48 ug/mLFEU (0.20-0.54)
--- NOTE | 2019-01-23 11:17 | NUR ---
[facility] CRITICAL LAB RESULTS D-DIMER= 2.48
--- NOTE | 2019-01-23 12:12 | NUR ---
RTND FROM CT. SOLAR FABRICATION TECHNICIAN REPORTS LAC SL ACCIDENTALLY D/C'D AND RESITED TO [facility]
--- NOTE | 2019-01-23 12:16 | NUR ---
REPORT CALLED TO ADONIS LOAIZA
--- NOTE | 2019-01-23 12:17 | NUR ---
TRANSPORTED TO ROOM #2127, CONDITION STABLE
[2019-01-23] MEDS ORDERED: LEVAQUIN750 MG PO (12:27)
--- NOTE | 2019-01-23 12:50 | NUR ---
TRANSFER FROM ER BY STRETCHER. OREINTED TO ROOM. CALL LIGHT IN REACH. WILL CONT. PLAN OF CARE.
[2019-01-23 13:08] VITALS: BP 125/56; BMI 16.5
[2019-01-23 14:44] VITALS: BP 119/65
[2019-01-23 20:00] VITALS: BP 117/56
[2019-01-24] VITALS (7 sets, daily range): BP systolic 116–155; BP diastolic 52–73; Ht 160 cm; Wt 46.3 kg
--- NOTE | 2019-01-24 03:00 | NUR ---
RESTING WITH EYES CLOSED, RESPERATIONS EVEN, NO S/S DISTRESS NOTED.
[2019-01-24 07:10] LABS: BASOPHILS 0 % (0-2); EOSINOPHILS 0 % (0-7); HEMOGLOBIN 12.5 g/dL (12-16); IMMATURE GRANULOCYTES 0.2 % (0-5); LYMPHOCYTES 12.9 % (15-50); MCHC 32.1 g/dL (31.0-37.0); MCV 87.2 fL (80.0-100.0); MEAN PLATELET VOLUME 9.8 fL (7.4-10.4); MONOCYTES 3.6 % (2-11); NEUTROPHILS 83.3 % (40-80); RBC 4.47 10x6/uL (4.00-5.40); RDW 13.4 % (11.5-14.5)
[2019-01-24 07:14] LABS: PLATELET COUNT 320 10x3/uL (130-400); WBC 4.2 10x3/uL (4.8-10.8)
[2019-01-24 07:15] LABS: CALC OSMOLALITY 282 mosm/kg (275-300); CALCIUM 8.4 mg/dL (8.5-10.1); CARBON DIOXIDE 34.2 mmol/L (21.0-32.0); CHLORIDE - SERUM 101 mmol/L (98-107); CREATININE - SERUM 0.6 mg/dL (0.6-1.3); GLUCOSE 177 mg/dL (74-106); POTASSIUM - SERUM 3.9 mmol/L (3.5-5.1); SODIUM 139 mmol/L (136-145); UREA NITROGEN 14 mg/dL (7-18); eGFR NON AFRICAN AMERICAN > 90 mL/min (90-120)
--- NOTE | 2019-01-24 08:39 | NUR ---
ASSESSMENT DONE. DENIES NEEDS
--- NOTE | 2019-01-24 10:21 | NUR ---
I have reviewed this patient and I concur with the Shift Assessment completed by the Licensed Practical Nurse today this shift.
--- NOTE | 2019-01-24 17:51 | NUR ---
WITHOUT CHANGES OR DISTRESS NOTED AT THIS TIME.
--- NOTE | 2019-01-24 19:41 | NUR ---
PT IS SITTING UP IN BED. SHE STATES SHE FEELS MUCH BETTER THAN SHE DID YESTERDAY. SHE DENIES PAIN OR NEEDS. CALL LIGHT WITHIN REACH. BED IN LOW POSTITION.
--- NOTE | 2019-01-25 04:08 | NUR ---
PT CALLED FOR HELP TO THE RESTROOM. ARELY JUAREZ AND Maicol WERE UNABLE TO GET HER OUT OF BED BECAUSE OF HER BACK PAIN.SHE STATES SHE HAS CHRONIC BACK PAIN FROM SURGERY. DRAW SHEET UNDER PT WAS SATURATED WITH URINE. ASSISTED PT ONTO BED PETIT. WILL ADMINISTER HYDROCODONE ORDERED FOR HER BACK PAIN. SHE RATES IT A 8/10. SHE IS MORE ALERT NOW AND ORIENTED X 4. VSS. WILL CONTINUE TO MONITOR.
[2019-01-25 04:30] VITALS: BP 149/68
--- NOTE | 2019-01-25 05:29 | NUR ---
SCANNER WILL NOT SCAN PTS WRIST BAND OR MEDICATION THIS MORNING. AM SOLUMEDROL GIVEN.
--- NOTE | 2019-01-25 07:30 | NUR ---
ALERT AND ORIENTED. 02 AT 2 LM PER MIN. RIGHT AC SL. UP AB GOSIA. DENIES ANY NEEDS.FAMILY AT BEDSIDE
[2019-01-25 08:10] VITALS: BP 150/77
[2019-01-25 11:02] VITALS: BP 165/65
--- NOTE | 2019-01-25 14:36 | NUR ---
HOB UP. DENIES ANY NEEDS. TELEMERTY SHOWS SR. FAMILY AT BEDSIDE
--- NOTE | 2019-01-25 14:40 | NUR ---
I have reviewed this patient and I concur with the Shift Assessment completed by the Licensed Practical Nurse today this shift.
[2019-01-25 15:51] VITALS: BP 138/67
--- NOTE | 2019-01-25 16:51 | MORECARE ---
CASE MANAGEMENT DISCHARGE SUMMARY PATIENT: SHAYNE NAVA UNIT: [id number] ADM DATE: 01/23/19 AGE: 78 : 41 SEX: F ROOM/BED: D.8247 AUTHOR: YAYO LEE PHYSICIAN: REFERRING PHYSICIAN: LORY SCHMIDT MD DATE OF SERVICE: 01/25/19 Discharge Plan Patient Name: SHAYNE NAVA Facility: [facility]:[place] : 1940 Planned Disposition: Anticipated Discharge Date: Discharge Date: Expected LOS: Initial Reviewer: [id number] Initial Review Date: 01/25/2019 Generated: 01/25/19 5:50 pm Patient Name: SHAYNE NAVA Page [id number] at 1651 All edits/amendments must be made on the electronic document DICTATION DATE: 01/25/191649 PARTY BUS DRIVER: MARIA E 01/25/191649 RPT#: [id number] DC DATE: STATUS: ADM IN [facility] [address] [place] [address] END OF REPORT
--- NOTE | 2019-01-25 16:59 | MORECARE ---
CASE MANAGEMENT DISCHARGE SUMMARY PATIENT: SHAYNE NAVA UNIT: [id number] ADM DATE: 01/23/19 AGE: 78 : 41 SEX: F ROOM/BED: D.6916 AUTHOR: YAYO LEE PHYSICIAN: REFERRING PHYSICIAN: LORY SCHMIDT MD DATE OF SERVICE: 01/25/19 Discharge Plan Patient Name: SHAYNE NAVA Facility: [facility]:[place] : 1940 Planned Disposition: Anticipated Discharge Date: Discharge Date: Expected LOS: Initial Reviewer: [email or web address] Initial Review Date: 01/25/2019 Generated: 01/25/19 5:58 pm Comments DCP- Discharge Planning Updated by [email or web address]: Graciela Calderon on 01/25/19 3:[address] Patient Name: SHAYNE NAVA Admission Status: ER Accout number: [id number] Admission Date: 01-23-2019 : 1940 Admission Diagnosis: Attending: LORY SCHMIDT Current LOS: 2 Anticipated DC Date: Planned Disposition: Primary Insurance: MEDICARE A & B Discharge Planning Comments: CM MET WITH PATIENT ABOUT DC PLANNING/NEEDS. WILL NEED 02 FOR HOME. EFREN SIGNED FOR [facility]. STATES HOPING TO DISCHARGE TOMORROW. CM WILL FOLLOW. Wood Pole Treater: Graciela Calderon DCPIA - Discharge Planning Initial Assessment Updated by [id number]: Graciela Calderon on 01/25/19 4:51 pm * Is the patient Alert and Oriented? Yes * PCP RIKA * Pharmacy [facility] [address] * Preadmission Environment Home with Family * ADLs Independent * Other Equipment WALKER, NEBS * Please name any agencies selected above. [facility] * Additional services required to return to the preadmission environment? Yes * Can the patient safely return to the preadmission environment? Yes * Has this patient been hospitalized within the prior 30 days at any hospital? No Coverage Notice Reviewer: [id number] - Graciela Calderon Notice Issued Date-Time: 01/25/2019 16:52 Notice Type: IM Discharge Notice Notice Delivered To: Patient Relationship to Patient: Flat Sorter Processor Name: Delivery Method: HAND - Hand Delivered Natacha Days: Prior Verbal Notification: Recipient Understood Notice: Yes Recipient Signature: Yes Med Rec Note Co-signed by Attending: Coverage Notice Comment: LELA Barbour DP export: 01/25/19 3:51 Patient Name: SHAYNE NAVA Page [id number] at 1659 All edits/amendments must be made on the electronic document DICTATION DATE: 01/25/191657 UTILITY WORKER [place]: MARIA E 01/25/191657 RPT#: [id number] DC DATE: STATUS: ADM IN [facility] [address] [place] [address] END OF REPORT
--- NOTE | 2019-01-25 19:00 | NUR ---
PT IS SITTING UP IN BED TALKING ON THE PHONE. STATES SHE IS FEELING BETTER AND MIGHT GET TO GO HOME TOMORROW. GRANDAUGHTER IS AT BEDSIDE. PT DENIES PAIN OR NEEDS. BED LOW AND CALL LIGHT WITHIN REACH.
[2019-01-25 20:19] VITALS: BP 160/88
[2019-01-25 23:19] VITALS: BP 120/66
[2019-01-26 04:30] LABS: BASOPHILS 0.1 % (0-2); EOSINOPHILS 0 % (0-7); HEMATOCRIT 37.6 % (36.0-48.0); IMMATURE GRANULOCYTES 0.8 % (0-5); LYMPHOCYTES 4.6 % (15-50); MCH 28.1 pg (26.0-34.0); MCHC 31.9 g/dL (31.0-37.0); MCV 88.1 fL (80.0-100.0); MEAN PLATELET VOLUME 9.6 fL (7.4-10.4); MONOCYTES 7.3 % (2-11); NEUTROPHILS 87.2 % (40-80); PLATELET COUNT 336 10x3/uL (130-400); RBC 4.27 10x6/uL (4.00-5.40); RDW 13.9 % (11.5-14.5)
[2019-01-26 04:38] VITALS: BP 132/74
[2019-01-26 04:42] LABS: WBC 15.7 10x3/uL (4.8-10.8)
[2019-01-26 04:57] LABS: CALC OSMOLALITY 275 mosm/kg (275-300); CALCIUM 8.2 mg/dL (8.5-10.1); CARBON DIOXIDE 34.2 mmol/L (21.0-32.0); CHLORIDE - SERUM 102 mmol/L (98-107); CREATININE - SERUM 0.6 mg/dL (0.6-1.3); GLUCOSE 155 mg/dL (74-106); POTASSIUM - SERUM 3.9 mmol/L (3.5-5.1); SODIUM 135 mmol/L (136-145); eGFR NON AFRICAN AMERICAN > 90 mL/min (90-120)
[2019-01-26 05:07] LABS: UREA NITROGEN 20 mg/dL (7-18)
--- NOTE | 2019-01-26 07:55 | NUR ---
ALERT AND ORIENTED. TELEMERTY SHOWS ST 108. 02 AT 2 L/M PER NC. RIGHT AC SL. SR UP AND CALL LIGHT IN REACH. WILL MONITOR
[2019-01-26 09:05] VITALS: BP 146/59
--- NOTE | 2019-01-26 12:34 | NUR ---
Nutrition Follow-up: Pt reports good appetite/PO intake. Drinking 1-2 Ensure/day. Diet: Regular, Ensure TID PO intake: 88% avg x 4 meals Wt: 101.9# Last BM: 01/19 or 01/20 per pt; reports this is normal for her. Labs noted: Glu 155, Ca 8.2 Meds noted: Solumedrol -Continue current diet/supplements as tolerated. -May consider stool softener. -RD following.
[2019-01-26 12:59] VITALS: BP 139/84
[2019-01-26 18:01] VITALS: BP 135/83
--- NOTE | 2019-01-26 19:05 | NUR ---
PT CARE ASSUMED. BEDSIDE SHIFT REPORT COMPLETE. PT RESTING IN BED HIGH FOWLERS. RR EVEN AND UNLABORED ON 2L NC. NO S/S OF DISTRESS NOTED AT THIS TIME. FAMILY AT BEDSIDE. NO NEEDS EXPRESSED. SR X2. CALL LIGHT IN REACH. WILL CTM.
[2019-01-26 20:00] VITALS: BP 159/72
[2019-01-27] VITALS: BP 160/80
[2019-01-27 04:00] VITALS: BP 148/75
[2019-01-27 05:02] LABS: BASOPHILS 0.1 % (0-2); EOSINOPHILS 0 % (0-7); HEMATOCRIT 37.2 % (36.0-48.0); HEMOGLOBIN 11.7 g/dL (12-16); IMMATURE GRANULOCYTES 1.4 % (0-5); LYMPHOCYTES 4.1 % (15-50); MCHC 31.5 g/dL (31.0-37.0); MEAN PLATELET VOLUME 10.2 fL (7.4-10.4); MONOCYTES 1.5 % (2-11); NEUTROPHILS 92.9 % (40-80); PLATELET COUNT 335 10x3/uL (130-400); RBC 4.18 10x6/uL (4.00-5.40); RDW 13.8 % (11.5-14.5)
[2019-01-27 05:04] LABS: WBC 8.5 10x3/uL (4.8-10.8)
[2019-01-27 05:12] LABS: CALC OSMOLALITY 282 mosm/kg (275-300); CALCIUM 7.8 mg/dL (8.5-10.1); CHLORIDE - SERUM 103 mmol/L (98-107); CREATININE - SERUM 0.6 mg/dL (0.6-1.3); POTASSIUM - SERUM 3.8 mmol/L (3.5-5.1); SODIUM 137 mmol/L (136-145); UREA NITROGEN 16 mg/dL (7-18); eGFR NON AFRICAN AMERICAN > 90 mL/min (90-120)
[2019-01-27 05:13] LABS: GLUCOSE 245 mg/dL (74-106)
--- NOTE | 2019-01-27 08:49 | NUR ---
SITTING IN BED CONSUMING AM MEAL WITH ATTENTION TOWARD TELEVISION. CALL LIGHT WITHIN REACH. NO DISTRESS. FAMILY AT BEDSIDE.
[2019-01-27 09:20] VITALS: BP 147/69
[2019-01-27] MEDS ORDERED: XANAX0.25 MG PO (12:01)
[2019-01-27] MEDS ORDERED: Tessalon Perle PO (12:01)
[2019-01-27] MEDS ORDERED: ASPIRIN325 MG PO (12:01)
[2019-01-27] MEDS ORDERED: ROBITUSSIN AC (WITH PO (12:02)
[2019-01-27] MEDS ORDERED: MEDROL DOSE PACK4 MG PO (12:03)
[2019-01-27] MEDS ORDERED: TESSALON PERLE100 MG PO (12:04)
[2019-01-27] MEDS ORDERED: GUAIFEN-CODEINE10 ML PO (12:06)
--- NOTE | 2019-01-27 12:11 | MORECARE ---
CASE MANAGEMENT DISCHARGE SUMMARY PATIENT: SHAYNE NAVA UNIT: [id number] ADM DATE: 01/23/19 AGE: 78 : 41 SEX: F ROOM/BED: D.1687 AUTHOR: YAYO LEE PHYSICIAN: REFERRING PHYSICIAN: LORY SCHMIDT MD DATE OF SERVICE: 01/27/19 Discharge Plan Patient Name: SHAYNE NAVA Facility: [facility]:[place] : 1940 Planned Disposition: Anticipated Discharge Date: Discharge Date: Expected LOS: Initial Reviewer: [id number] Initial Review Date: 01/25/2019 Generated: 01/27/19 1:11 pm DCP- Discharge Planning Updated by [email or web address]: Graciela Calderon on 01/25/19 3:[address] Patient Name: SHAYNE NAVA Admission Status: ER Accout number: [id number] Admission Date: 01-23-2019 : 1940 Admission Diagnosis: Attending: LORY SCHMIDT Current LOS: 2 Anticipated DC Date: Planned Disposition: Primary Insurance: MEDICARE A & B Discharge Planning Comments: CM MET WITH PATIENT ABOUT DC PLANNING/NEEDS. WILL NEED 02 FOR HOME. EFREN SIGNED FOR [facility]. STATES HOPING TO DISCHARGE TOMORROW. CM WILL FOLLOW. Tick Inspector: Graciela Calderon DCPIA - Discharge Planning Initial Assessment Updated by [email or web address]: Graciela Calderon on 01/25/19 4:51 pm * Is the patient Alert and Oriented? Yes * PCP RIKA * Pharmacy [facility] [address] * Preadmission Environment Home with Family * ADLs Independent * Other Equipment WALKER, NEBS * Please name any agencies selected above. [facility] * Additional services required to return to the preadmission environment? Yes * Can the patient safely return to the preadmission environment? Yes * Has this patient been hospitalized within the prior 30 days at any hospital? No External Providers External Provider: Kayla Next Contact Date: Service Request Date: Service Type: Resolution: Reviewer: Comments: Coverage Notice Reviewer: [id number] Natan Calderon Notice Issued Date-Time: 01/25/2019 16:52 Notice Type: IM Discharge Notice Notice Delivered To: Patient Relationship to Patient: Manager Sharepoint Name: Delivery Method: HAND - Hand Delivered Natacha Days: Prior Verbal Notification: Recipient Understood Notice: Yes Recipient Signature: Yes Med Rec Note Co-signed by Attending: Coverage Notice Comment: LELA Barbour DP export: 01/25/19 3:59 Patient Name: SHAYNE NAVA Page [id number] at 1211 All edits/amendments must be made on the electronic document DICTATION DATE: 01/27/19 121 TORCH SOLDERER: MARIA E 01/27/19 1211 RPT#: [id number] DC DATE: STATUS: ADM IN [facility] [address] [place] [address] END OF REPORT
--- NOTE | 2019-01-27 12:20 | MORECARE ---
CASE MANAGEMENT DISCHARGE SUMMARY PATIENT: SHAYNE NAVA UNIT: [id number] ADM DATE: 01/23/19 AGE: 78 : 41 SEX: F ROOM/BED: D.1367 AUTHOR: YAYO LEE PHYSICIAN: REFERRING PHYSICIAN: LORY SCHMIDT MD DATE OF SERVICE: 01/27/19 Discharge Plan Patient Name: SHAYNE NAVA Facility: [facility]:[place] : 1940 Planned Disposition: Anticipated Discharge Date: Discharge Date: Expected LOS: Initial Reviewer: [email or web address] Initial Review Date: 01/25/2019 Generated: 01/27/19 1:19 pm Comments DCP- Discharge Planning Updated by [email or web address]: Nadeen Medellin on 01/27/19 11:[address] DC TODAY: Dc order on chart. Patient discharging home today with her granddaughter and Oxygen set up from [facility] [place]. Portable to be delivered to patients hospital room before she leaves. CM met with patient and informed her that [facility] is not able to set up her oxygen over the weekend since the office did not approve it. supervisor travel information center staff apologized and said it would be Tuesday before it could be arranged. EFREN presented, explained and signed by the patient for [facility] [place]. Spoke to Franklyn with [facility] [place], faxed orders and other required documentation to her. She will deliver portable O2 to patient's room prior and then the haul driver will meet her at her home and set up the home concentrator. Patient's granddaughter will be staying with her at home and she denied need for home health or other resources. She feels her dc is safe. Cm will continue to follow and will assist as needed with dc plans/needs. DC IIMM presented, explained, and signed by patient for dc today. Signed form given to patient and placed on chart. Nadeen Medellin RN, [facility] DCP- Discharge Planning Updated by [id number]: Graciela Calderon on 01/25/19 3:[address] Patient Name: SHAYNE NAVA Admission Status: ER Accout number: [id number] Admission Date: 01-23-2019 : 1940 Admission Diagnosis: Attending: LORY SCHMIDT Current LOS: 2 Anticipated DC Date: Planned Disposition: Primary Insurance: MEDICARE A & B Discharge Planning Comments: CM MET WITH PATIENT ABOUT DC PLANNING/NEEDS. WILL NEED 02 FOR HOME. EFREN SIGNED FOR [facility]. STATES HOPING TO DISCHARGE TOMORROW. CM WILL FOLLOW. Caregivers Non Medical: Graciela Calderon DCPIA - Discharge Planning Initial Assessment Updated by [email or web address]: Graciela Calderon on 01/25/19 4:51 pm * Is the patient Alert and Oriented? Yes * PCP RIKA * Pharmacy [facility] [address] * Preadmission Environment Home with Family * ADLs Independent * Other Equipment WALKER, NEBS * Please name any agencies selected above. [facility] * Additional services required to return to the preadmission environment? Yes * Can the patient safely return to the preadmission environment? Yes * Has this patient been hospitalized within the prior 30 days at any hospital? No Coverage Notice Reviewer: [id number] - Graciela Calderon Notice Issued Date-Time: 01/25/2019 16:52 Notice Type: IM Discharge Notice Notice Delivered To: Patient Relationship to Patient: Ecology Professor Name: Delivery Method: HAND - Hand Delivered Natacha Days: Prior Verbal Notification: Recipient Understood Notice: Yes Recipient Signature: Yes Med Rec Note Co-signed by Attending: Coverage Notice Comment: LELA Reviewer: [id number] Natan Medellin Notice Issued Date-Time: 01/27/2019 10:55 Notice Type: IM Discharge Notice Notice Delivered To: Patient Relationship to Patient: Ecology Professor Name: Delivery Method: HAND - Hand Delivered Natacha Days: Prior Verbal Notification: Recipient Understood Notice: Recipient Signature: Med Rec Note Co-signed by Attending: Coverage Notice Comment: Last DP export: 01/27/19 11:11 Patient Name: SHAYNE NAVA Page 11363 at 1220 All edits/amendments must be made on the electronic document DICTATION DATE: 01/27/19 1219 AIRBORNE OPERATIONS SUPERINTENDENT: MARIA E 01/27/19 1219 RPT#: [id number] DC DATE: STATUS: ADM IN [facility] [address] [place] [address] END OF REPORT
--- NOTE | 2019-01-27 14:26 | NUR ---
20 GAUGE IV REMOVED FROM RIGHT FOREARM. CATHETER TIP INTACT. NO BLEEDING FROM SITE. 2X2 GAUZE APPLIED AND SECURED WITH TAPE. TOLERATED IV REMOVAL WELL. PATIENT IS BEING DISHCARGED TO HOME. DISCHARGE INSTRUCTIONS PROVIDED TO PATIENT AND HER GRANDDAUGHTER AT THIS TIME. PATIENT HAS O2 TANK FROM [facility] AT BEDSIDE AND [facility] WILL SET UP CONCENTRATOR ONCE SHE GETS ONE. PATIENT IS WAITING FOR DAUGHTER TO GET HERE TELEMETRY RETURNED TO CIVIL DESIGNER.
--- NOTE | 2019-01-27 14:50 | NUR ---
PATEINT LEAVING UNIT VIA WHEELCHAIR WITH ALL PERSONAL BELONGINGS. PATIENT DISCHARGED TO HOME. NO DISTRESS UPON LEAVING UNIT.
--- NOTE | 2019-01-27 17:39 | MORECARE ---
CASE MANAGEMENT DISCHARGE SUMMARY PATIENT: SHAYNE NAVA UNIT: [id number] ADM DATE: 01/23/19 AGE: 78 : 41 SEX: F ROOM/BED: D.8065 AUTHOR: YAYO LEE PHYSICIAN: REFERRING PHYSICIAN: LORY SCHMIDT MD DATE OF SERVICE: 01/27/19 Discharge Plan Patient Name: SHAYNE NAVA Facility: [facility]:[place] : 1940 Planned Disposition: Anticipated Discharge Date: Discharge Date: 01/27/2019 Expected LOS: Initial Reviewer: [email or web address] Initial Review Date: 01/25/2019 Generated: 01/27/19 6:39 pm Comments DCP- Discharge Planning Updated by [id number]: Nadeen Medellin on 01/27/19 11:[address] DC TODAY: Dc order on chart. Patient discharging home today with her granddaughter and Oxygen set up from [facility]. Portable to be delivered to patients hospital room before she leaves. CM met with patient and informed her that [facility] is not able to set up her oxygen over the weekend since the office did not approve it. relationship manager staff apologized and said it would be Tuesday before it could be arranged. EFREN presented, explained and signed by the patient for [facility]. Spoke to Franklyn with [facility], faxed orders and other required documentation to her. She will deliver portable O2 to patient's room prior and then the piledriver carpenter will meet her at her home and set up the home concentrator. Patient's granddaughter will be staying with her at home and she denied need for home health or other resources. She feels her dc is safe. Cm will continue to follow and will assist as needed with dc plans/needs. DC IIMM presented, explained, and signed by patient for dc today. Signed form given to patient and placed on chart. Nadeen Medellin RN, [facility] DCP- Discharge Planning Updated by [id number]: Graciela Calderon on 01/25/19 3:[address] Patient Name: SHAYNE NAVA Admission Status: ER Accout number: [id number] Admission Date: 01-23-2019 : 1940 Admission Diagnosis: Attending: LORY SCHMIDT Current LOS: 2 Anticipated DC Date: Planned Disposition: Primary Insurance: MEDICARE A & B Discharge Planning Comments: CM MET WITH PATIENT ABOUT DC PLANNING/NEEDS. WILL NEED 02 FOR HOME. EFREN SIGNED FOR [facility]. STATES HOPING TO DISCHARGE TOMORROW. CM WILL FOLLOW. Mail Caller: Graciela Calderon DCPIA - Discharge Planning Initial Assessment Updated by [id number]: Graciela Calderon on 01/25/19 4:51 pm * Is the patient Alert and Oriented? Yes * PCP RIKA * Pharmacy [facility] [address] * Preadmission Environment Home with Family * ADLs Independent * Other Equipment WALKER, NEBS * Please name any agencies selected above. [facility] * Additional services required to return to the preadmission environment? Yes * Can the patient safely return to the preadmission environment? Yes * Has this patient been hospitalized within the prior 30 days at any hospital? No Coverage Notice Reviewer: [id number] - Graciela Calderon Notice Issued Date-Time: 01/25/2019 16:52 Notice Type: IM Discharge Notice Notice Delivered To: Patient Relationship to Patient: Radiological Technician Name: Delivery Method: HAND - Hand Delivered Natacha Days: Prior Verbal Notification: Recipient Understood Notice: Yes Recipient Signature: Yes Med Rec Note Co-signed by Attending: Coverage Notice Comment: LELA Reviewer: [id number] Natan Medellin Notice Issued Date-Time: 01/27/2019 10:55 Notice Type: IM Discharge Notice Notice Delivered To: Patient Relationship to Patient: Radiological Technician Name: Delivery Method: HAND - Hand Delivered Natacha Days: Prior Verbal Notification: Recipient Understood Notice: Recipient Signature: Med Rec Note Co-signed by Attending: Coverage Notice Comment: Last DP export: 01/27/19 11:20 Patient Name: SHAYNE NAVA Page [id number] at 1739 All edits/amendments must be made on the electronic document DICTATION DATE: 01/27/191738 VOLCANOLOGY TEACHER: MARIA E 01/27/191738 RPT#: [id number] DC DATE:01/27/19 STATUS: DIS IN [facility] [address] [place] [address] END OF REPORT
== END 2019-01-27 15:08 | disposition home or self-care (01) | DRG 202 ==
LOC: D.ER 09:30 → D.M2 12:06
PROVIDERS: Family Medicine; ADMIT Family Medicine; ATTEND Family Medicine
DX: J40 Bronchitis, not specified as acute or chronic (principal); J44.1 Chronic obstructive pulmonary disease with (acute) exacerbation; Z99.81 Dependence on supplemental oxygen; Z87.891 Personal history of nicotine dependence

== ENCOUNTER 2020-07-17 14:44 | Inpatient (IN) | payer MEDICARE ==
[~2020-07-17] VITALS: Ht 160 cm; Wt 44.5 kg
[~2020-07-17 14:44] MED LIST changes: +ASPIRIN325 MG PO; +GUAIFEN-CODEINE10 ML PO; +ROBITUSSIN AC (WITH PO; +TESSALON PERLE100 MG PO; +Tessalon Perle PO
[2020-07-17 15:46] LABS: BASOPHILS 0.2 % (0-2); EOSINOPHILS 1.3 % (0-7); HEMATOCRIT 38.6 % (36.0-48.0); HEMOGLOBIN 12.2 g/dL (12-16); IMMATURE GRANULOCYTES 0.2 % (0-5); LYMPHOCYTE ABS# 2.04 10x3/uL (1.18-3.74); LYMPHOCYTES 14.3 % (15-50); MCH 27.6 pg (26.0-34.0); MCHC 31.6 g/dL (31.0-37.0); MCV 87.3 fL (80.0-100.0); MEAN PLATELET VOLUME 10.1 fL (7.4-10.4); MONOCYTES 5.6 % (2-11); NEUTROPHIL ABS# 11.19 10x3/uL (1.56-6.13); NEUTROPHILS 78.4 % (40-80); PLATELET COUNT 379 10x3/uL (130-400); RBC 4.42 10x6/uL (4.00-5.40); RDW 13.8 % (11.5-14.5); WBC 14.3 10x3/uL (4.8-10.8)
[2020-07-17 16:03] LABS: CALC OSMOLALITY 278 mosm/kg (275-300); CALCIUM 8.8 mg/dL (8.5-10.1); CARBON DIOXIDE 29.2 mmol/L (21.0-32.0); CHLORIDE - SERUM 105 mmol/L (98-107); CREATININE - SERUM 0.6 mg/dL (0.6-1.3); SODIUM 140 mmol/L (136-145); UREA NITROGEN 11 mg/dL (7-18); eGFR NON AFRICAN AMERICAN > 90 mL/min (90-120)
[2020-07-17 16:05] LABS: GLUCOSE 119 mg/dL (74-106)
[2020-07-17 16:09] LABS: ALBUMIN 3.1 g/dL (3.4-5.0); ALKALINE PHOSPHATASE 76 U/L (30-120); ALT (SGPT) 15 U/L (10-68); PROTEIN - SERUM 6.4 g/dL (6.4-8.2)
[2020-07-17 18:03] VITALS: BP 128/71
--- NOTE | 2020-07-17 18:54 | NUR ---
PATIENT TO ROOM AT THIS TIME. IV INTACT. NO COMPLAINTS. REPORT GIVEN TO GIULIANO LAMB. CALL LIGHT WITHIN REACH.
--- NOTE | 2020-07-17 19:45 | NUR ---
RECEIVED BEDSIDE REPORT. PT LAYING IN BED A&O X4. PIV TO RIGHT FOREARM PATENT AND S/L, NO REDNESS OR SWELLING. LEFT ANKLE FX, KATALINA WRAP C/D/I. PT ON BEDREST. BED LOW, ALARM ON, CL IN REACH.
[2020-07-17 21:36] VITALS: BP 147/66
[2020-07-18 00:56] VITALS: BP 147/66; BMI 17.4
[2020-07-18 04:00] VITALS: BP 122/65
[2020-07-18 07:52] LABS: KETONE SMALL mg/dL (NEGATIVE); NITRITE NEGATIVE (NEGATIVE)
[2020-07-18 07:53] LABS: BILIRUBIN NEGATIVE (NEGATIVE); SQUAMOUS EPITHELIAL 0-5 HPF (0-4); UROBILINOGEN NORMAL mg/dL (< 2)
[2020-07-18 07:54] LABS: AMORPHOUS SEDIMENT FEW LPF (NONE SEEN); BACTERIA MANY HPF (NONE SEEN)
[2020-07-18 08:38] VITALS: BP 107/56
--- NOTE | 2020-07-18 11:44 | NUR ---
PATIENT LEFT FOR SURGERY WITH SURGICAL STAFF. SPLINT NOTED TO LLE WITH CAP REFILL<3 SEC.
[2020-07-18 15:13] VITALS: BP 151/64
--- NOTE | 2020-07-18 15:15 | NUR ---
PATIENT RETURNED TO ROOM CAP REFOLL<3 SEC TO RLE WITH SOFT SPLINT NOTED.DENEIS ANYH PAIN OR DISOCMFORT AT THIS TIME. O2 3L N/C AND ANSWERS APPROPIATE TO QUESTIONS. ENCOURAGED TO USE CALL LIGHT FOR ASSSIT. WITH FAMILY PRESENT
[2020-07-18 15:40] VITALS: Ht 160 cm; Wt 44.5 kg
[2020-07-18 17:30] VITALS: BP 144/62
--- NOTE | 2020-07-18 19:45 | NUR ---
RECEIVED BEDSIDE REPORT. PT LAYING IN BED A&O X4. PIV TO RIGHT FOREARM PATENT AND INFUSING, NO REDNESS OR SWELLING. 02 SAT 94% ON 3L VIA NC, LUNG SOUND DIMINISHED IN ALL LOBES. INCISION TO LLE, ANA MARIA C/D/I. EDUCATED PT ON CL AND NEEDS, VERBALIZED UNDERSTANDING. BED LOW, ALARM ON, CL IN REACH.
[2020-07-18 21:28] VITALS: BP 147/54
[2020-07-19 05:46] VITALS: BP 108/61
[2020-07-19 06:28] LABS: BASOPHILS 0.2 % (0-2); EOSINOPHILS 0 % (0-7); IMMATURE GRANULOCYTES 0.2 % (0-5); LYMPHOCYTE ABS# 1.44 10x3/uL (1.18-3.74); LYMPHOCYTES 12.2 % (15-50); MCH 27.6 pg (26.0-34.0); MCHC 31.6 g/dL (31.0-37.0); MCV 87.5 fL (80.0-100.0); MEAN PLATELET VOLUME 9.9 fL (7.4-10.4); MONOCYTES 8.9 % (2-11); NEUTROPHIL ABS# 9.25 10x3/uL (1.56-6.13); NEUTROPHILS 78.5 % (40-80); RDW 13.9 % (11.5-14.5); WBC 11.8 10x3/uL (4.8-10.8)
[2020-07-19 06:38] LABS: CALC OSMOLALITY 278 mosm/kg (275-300); CALCIUM 7.6 mg/dL (8.5-10.1); CARBON DIOXIDE 25.6 mmol/L (21.0-32.0); CHLORIDE - SERUM 105 mmol/L (98-107); CREATININE - SERUM 0.6 mg/dL (0.6-1.3); GLUCOSE 86 mg/dL (74-106); POTASSIUM - SERUM 4.3 mmol/L (3.5-5.1); SODIUM 139 mmol/L (136-145); eGFR NON AFRICAN AMERICAN > 90 mL/min (90-120)
[2020-07-19 06:39] LABS: HEMATOCRIT 30.1 % (36.0-48.0); HEMOGLOBIN 9.5 g/dL (12-16); PLATELET COUNT 287 10x3/uL (130-400); RBC 3.44 10x6/uL (4.00-5.40)
[2020-07-19 06:43] LABS: UREA NITROGEN 17 mg/dL (7-18)
[2020-07-19 09:15] VITALS: BP 138/61
[2020-07-19 13:50] VITALS: BP 122/59
[2020-07-19 18:34] VITALS: BP 129/58
--- NOTE | 2020-07-19 19:46 | NUR ---
PATIENT RESTING IN BED WITH GUEST AT BEDSIDE AND DENIES NEEDS AT THIS TIME. PATIENT IV TO LEFT FA. NO SWELLING, REDNESS, OR PAIN NOTED. BED IN LOWEST POSITION AND CALL LIGHT IN REACH. ENCOURAGED PATIENT TO CALL WITH NEEDS.
[2020-07-19 20:00] VITALS: BP 152/65
--- NOTE | 2020-07-19 20:45 | NUR ---
ADMINISTERED MEDS PER ORDERS. PATIENT LIZETTE WELL. ENCOURAGED TO CALL WITH NEEDS.
[2020-07-20] VITALS: BP 119/52
[2020-07-20 04:00] VITALS: BP 150/57
--- NOTE | 2020-07-20 08:30 | NUR ---
PATIENT IN BED WITH IV INTACT. NO COMPLAINTS OR SIGNS OF DISTRESS. FAMILY AT BEDSIDE. CALL LIGHT WITHIN REACH.
[2020-07-20 10:07] VITALS: BP 130/83
[2020-07-20 14:15] VITALS: BP 132/59
[2020-07-20 18:03] VITALS: BP 142/77
--- NOTE | 2020-07-20 18:35 | NUR ---
PATIENT IN BED WITH IV INTACT. NO COMPLAINTS OR SIGNS OF DISTRESS. FAMILY AT BEDSIDE. CALL LIGHT WITHIN REACH.
[2020-07-20 20:00] VITALS: BP 166/55
--- NOTE | 2020-07-21 03:00 | NUR ---
I have reviewed this patient and I concur with the Shift Assessment completed by the Licensed Practical Nurse today this shift.
[2020-07-21 04:00] VITALS: BP 163/77
[2020-07-21 08:35] VITALS: BP 165/77
--- NOTE | 2020-07-21 09:02 | NUR ---
RESTING,WITHOUT SIGNS OF DISTRESS.CALL LIGHT IN REACH
--- NOTE | 2020-07-21 11:37 | NUR ---
REHAB PRESCREEN RECEIVED. WE ARE WORKING UP HER CHART AT THIS TIME, AND I HAVE EXPLAINED TO GEMMA ORDONEZ RN CM THAT WE WILL LET HER KNOW THE DETERMINATION. JUST A BRIEF SCAN THROUGH HER CHART MAKES HER LOOK LIKE A GOOD CANDIDATE. THANK YOU FOR THIS REFERRAL. LUCITA SPARROW RN CM CLINICAL LIAISON, INPATIENT REHAB.
[2020-07-21 12:52] VITALS: BP 149/78
--- NOTE | 2020-07-21 12:53 | NUR ---
REHAB PRESCREEN ORDER RECEIVED. CHART REVIEWED. IT IS FELT MRS NAVA WILL BE A GOOD CANDIDATE FOR INPATIENT REHAB AND THE ELECTRONIC IS BEING COMPLETED. SHE WILL BE ACCEPTED WHEN ALL APPROVALS ARE IN PLACE AND HER PHYSICIAN FEELS SHE IS READY FOR DISCHARGE. WE COULD TAKE HER TODAY. THANK YOU FOR THE REFERRAL. LUCITA SPARROW RN CLINICAL LIAISON, INPATIENT REHAB.
[2020-07-21] MEDS ORDERED: CIPRO500 MG PO (14:19)
--- NOTE | 2020-07-21 14:38 | NUR ---
ASSISTED PATIENT TO BSC AGAIN, PATIENT DID WELL AND ABLE TO AMBUALTE WITH ASSIST. PATIENT ACCEPTED TO REHAB, WILL DC IV IN LEFT FA.M NO OTHER NEEDS AT THIS TIME. CONTINUE WITH PLAN OF CARE
[2020-07-21] MEDS ORDERED: HYDROCODON-ACE1 EAC7 PO (15:12)
--- NOTE | 2020-07-21 16:23 | NUR ---
IV DC WITH CATHETER INTACT, PATIENT DC TO INPT REHAB, WILL HAVE PATIENT TAKEN TO ROOM 1114A. WENT OVER ALL PAPERWORK WITH PT.
--- NOTE | 2020-07-21 17:51 | OP ---
PATIENT NAME: SHAYNE SAL MEDICAL RECORD: [id number] :42 LOCATION:[id number] ADMISSION DATE:07/17/20 SURGEON: SONYA BAR MD DATE OF OPERATION: 07/18/2020 PREOPERATIVE DIAGNOSIS: Left trimalleolar ankle fracture. POSTOPERATIVE DIAGNOSIS: Left trimalleolar ankle fracture. PROCEDURE PERFORMED: ORIF, left trimalleolar ankle fracture without fixation of the posterior malleolus. INDICATIONS: Ms. Sal is a 80-year-old female who fell yesterday at home and injured her left ankle. She was walking in her house and fell. Afterwards, she complained of pain and deformity of the ankle and was seen in the Emergency Department where she was found to have a trimalleolar fracture. Reduction was performed and a CT scan showed evidence of trimalleolar fracture. She was placed into a splint and arrangements were made for her to come to the operating room today for operative repair. Risks, benefits and alternatives of surgery were discussed with the patient and consent was obtained. DESCRIPTION OF PROCEDURE: The patient was met in the holding area where her identity and confirmation of procedure was performed. The left lower extremity was marked. She was taken to the operating room where she was placed supine on the operating table, and anesthesia was administered. Tourniquet was applied to the left thigh and left leg was prepped and draped in a sterile fashion. The patient received preoperative antibiotics and timeout was performed before initiating the case. On Initiation of the case, the leg was exsanguinated and the tourniquet was raised. Total tourniquet time was 105 minutes. We began with fixation of the distal fibula. Incision was made over the posterior aspect of the fibula, incising through the skin and subcutaneous tissues down to the fascia of the peroneal tendons. There was significant amount of hematoma in the subcutaneous tissues. The tissue was released along the posterior border of the fibula. Provisional reduction was obtained under fluoroscopy. Everything appeared to line up nicely. I was able to palpate the posterior malleolus piece, but it appeared to be of good position posteriorly without significant displacement on x-ray and no fixation was therefore required. A reduction of the distal fibula was obtained with a lobster claw clamp. The bone of the distal fibula was very soft and fragile. K-wires were used to assist in holding our reduction. Once we were pleased with the reduction and the alignment, an Arthrex distal fibula plate was positioned over the lateral cortex of the distal fibula. We then placed a cortical screw through the oblong hole in the proximal plate to help compress the plate to the bone. We were then able to fill the distal plate with locking screws. Three more locking screws were placed proximally. This provided good fixation of our distal fibula. We then turned our attention medially. An incision was made along the medial aspect of the ankle over the medial malleolus. We incised through the skin and subcutaneous tissues down to the medial malleolus and the fracture was identified. Fracture hematoma was debrided and the ankle joint was irrigated thoroughly with saline. Again, the bone in this area was very soft and fragile. Reduction was obtained and 2 guidewires for our cannulated screws were placed. We were pleased with our positioning and alignment of the medial malleolus and two 4.0 46 mm partially threaded cannulated screws were placed, advanced down until these were securely tightened. The guidewires were then removed. Final images of the ankle were obtained, showed good alignment and fixation of the trimalleolar OPERATIVE REPORT [id number] SHAYNE SAL fracture. External rotation stress test was performed and did not show any evidence of medial clear space or syndesmotic widening. The wounds were irrigated thoroughly with saline. The deep tissues were reapproximated with Vicryl suture. The subcutaneous skin was closed with Vicryl and the skin was closed with nylon. Again, the skin tissues were very fragile, especially along the medial and lateral ankle. Sterile dressing was placed. The patient was placed into a well-padded splint turned back over to anesthesia where she was awakened, extubated, and taken to recovery room in stable condition. POSTOPERATIVE PLAN: The patient is going to return to the floor for continued postoperative care. She will receive 24 hours of postoperative antibiotics to be started on DVT prophylaxis tomorrow. Physical therapy will be consulted to assist with mobilization. Nonweightbearing left lower extremity. She will likely need rehab upon discharge. COMPLICATIONS: None. ESTIMATED BLOOD LOSS: 25 mL. ANESTHESIA: General with peripheral nerve block. TRANSINT:[id number] Voice Confirmation ID: [id number] DOCUMENT ID: [id number] SONYA BAR MD at 1751 CC: [id number] DICTATION DATE: 07/18/201758 INFUSION THERAPY NURSE: 07/18/20 2215 DIS IN 07/21/20 [place] [id number] [facility] [address]
== END 2020-07-21 17:13 | DRG 493 ==
LOC: D.ER 14:44 → D.MS 16:18
PROVIDERS: Family Medicine; Orthopaedic Surgery; ADMIT Family Medicine; ATTEND Family Medicine
PROC: 0QSH04Z Reposition Left Tibia with Internal Fixation Device, Open Approach (ICD-10-PCS; 2020-07-18)
PROC: 0QSH0ZZ Reposition Left Tibia, Open Approach (ICD-10-PCS; 2020-07-18)
PROC: 0QSK04Z Reposition Left Fibula with Internal Fixation Device, Open Approach (ICD-10-PCS; principal; 2020-07-18 12:00)
DX: S82.852A Displaced trimalleolar fracture of left lower leg, initial encounter for closed fracture (principal); N39.0 Urinary tract infection, site not specified; W18.30XA Fall on same level, unspecified, initial encounter; J43.9 Emphysema, unspecified; Z99.81 Dependence on supplemental oxygen

== ENCOUNTER 2020-07-21 17:42 | Inpatient (IN) | payer MEDICARE ==
[~2020-07-21] VITALS: Ht 160 cm; Wt 45.4 kg
[~2020-07-21 17:42] MED LIST changes: +CIPRO500 MG PO
[2020-07-21 18:13] VITALS: BP 162/66; BMI 17.7
--- NOTE | 2020-07-21 18:47 | NUR ---
BEDSIDE REPORT COMPLETE. RECEIVED PT LYING IN BED, ALERT AND ORIENTED X4. DENIES ANY NEEDS. CONTINUES ON O2/3L VIA NC. LEFT LE WITH SOFT CAST INTACT. RIGHT FOOT +2 EDEMA. C/O 8/10 DEEP ACHING LLE PAIN. PAIN MEDICATION ADMININSTERED BY DAYSHIFT RN PER EMAR. CALL LIGHT AND WATER WITHIN REACH. JEFF ALARM ON. CPOC
[2020-07-21 21:44] VITALS: BP 162/66
--- NOTE | 2020-07-22 02:17 | NUR ---
PT LYING IN BED SUPINE EYES CLOSED RESTING. RR EVEN AND UNLABORED. CALL LIGHT WITHIN REACH. JEFF ALARM ON
[2020-07-22 07:24] LABS: BASOPHILS 0.3 % (0-2); EOSINOPHILS 4.1 % (0-7); HEMATOCRIT 30.5 % (36.0-48.0); HEMOGLOBIN 9.5 g/dL (12-16); IMMATURE GRANULOCYTES 0.1 % (0-5); LYMPHOCYTE ABS# 1.14 10x3/uL (1.18-3.74); LYMPHOCYTES 16.1 % (15-50); MCH 27.5 pg (26.0-34.0); MCHC 31.1 g/dL (31.0-37.0); MCV 88.2 fL (80.0-100.0); MEAN PLATELET VOLUME 9.7 fL (7.4-10.4); MONOCYTES 11.3 % (2-11); NEUTROPHIL ABS# 4.82 10x3/uL (1.56-6.13); NEUTROPHILS 68.1 % (40-80); PLATELET COUNT 336 10x3/uL (130-400); RBC 3.46 10x6/uL (4.00-5.40); RDW 14.2 % (11.5-14.5); WBC 7.1 10x3/uL (4.8-10.8)
[2020-07-22 07:36] LABS: CALC OSMOLALITY 277 mosm/kg (275-300); CALCIUM 8.5 mg/dL (8.5-10.1); CARBON DIOXIDE 34.2 mmol/L (21.0-32.0); CHLORIDE - SERUM 102 mmol/L (98-107); CREATININE - SERUM 0.5 mg/dL (0.6-1.3); GLUCOSE 88 mg/dL (74-106); POTASSIUM - SERUM 3.6 mmol/L (3.5-5.1); SODIUM 141 mmol/L (136-145); UREA NITROGEN 8 mg/dL (7-18); eGFR NON AFRICAN AMERICAN > 90 mL/min (90-120)
[2020-07-22 08:00] VITALS: BP 150/78
[2020-07-22 16:29] VITALS: Ht 160 cm; Wt 45.4 kg
--- NOTE | 2020-07-22 18:48 | NUR ---
BEDSIDE REPORT COMPLETED. RECEIVED PT SITTING UP IN BED. ALERT AND ORIENTED X4. DENIES ANY NEEDS. C/O LEFT LE DISCOMFORT 07/12 DOES NOT WANT ANYTHING FOR PAIN AT THIS TIME. LLE SOFT CAST INTACT. GENERALIZED EDEMA NOTED. RIGHT FOOT +2 EDEMA NOTED. CONTINUES ON O2/3L VIA NC. NO DISTRESS NOTED. CALL LIGHT AND WATER WITHIN REACH. JEFF ALARM ON. CPOC
[2020-07-22 19:00] VITALS: BP 163/66
--- NOTE | 2020-07-22 23:19 | NUR ---
PT LYING IN BED WATCHING TV. NORCO AND XANAX ADMININSTERED PER PT REQUEST DOCUMENTED IN EMAR. NO OTHER NEEDS VOICED. CALL LIGHT AND WATER WITHIN REACH. JEFF ALARM ON.
--- NOTE | 2020-07-23 03:09 | NUR ---
PT LYING IN BED SUPINE EYES CLOSED RESTING. RR EVEN AND UNLABORED. JEFF ALARM ON
[2020-07-23 07:30] LABS: HEMATOCRIT 28.9 % (36.0-48.0); HEMOGLOBIN 9.1 g/dL (12-16); MCH 27.6 pg (26.0-34.0); MCHC 31.5 g/dL (31.0-37.0); MCV 87.6 fL (80.0-100.0); MEAN PLATELET VOLUME 11.5 fL (7.4-10.4); NEUTROPHIL ABS# 4.02 10x3/uL (1.56-6.13); RDW 14.4 % (11.5-14.5); WBC 6.5 10x3/uL (4.8-10.8)
[2020-07-23 07:33] LABS: PLATELET COUNT 187 10x3/uL (130-400)
[2020-07-23 07:44] LABS: CALC OSMOLALITY 277 mosm/kg (275-300); CHLORIDE - SERUM 103 mmol/L (98-107); CREATININE - SERUM 0.4 mg/dL (0.6-1.3); GLUCOSE 103 mg/dL (74-106); POTASSIUM - SERUM 3.9 mmol/L (3.5-5.1); SODIUM 140 mmol/L (136-145); UREA NITROGEN 9 mg/dL (7-18); eGFR NON AFRICAN AMERICAN > 90 mL/min (90-120)
[2020-07-23 07:54] VITALS: BP 189/73
--- NOTE | 2020-07-23 08:00 | NUR ---
SHIFT ASSMT COMPLETED.
[2020-07-23 14:05] LABS: EOSINOPHILS 6 % (0-7); LYMPHOCYTES 18 % (15-50); MONOCYTES 17 % (2-11); NEUTROPHILS 59 % (40-80); PLATELET ESTIMATE NORMAL; PLATELET MORPHOLOGY PLT CLUMPS PRESENT
--- NOTE | 2020-07-23 16:33 | NUR ---
CARE TEAM MEETING: PATIENT IS NEW TO UNIT AND WILL BE RA AT NEXT MEETING. WILL CONTINUE TO FOLLOW WITH PATIENT.
--- NOTE | 2020-07-23 19:48 | NUR ---
AWAKE AND ALERT. RESTING IN BED WITH RESPIRATIONS UNLABORED. CAST IN PLACE TO LEFT LOWER LEG. KATALINA WRAP OVER CAST. TOES WARM AND PINK. ASSISTED TO BSCC AND BACK TO BED. NO DISTRESS NOTED.
[2020-07-23 21:29] VITALS: BP 169/63
--- NOTE | 2020-07-23 23:48 | NUR ---
STATES PAIN HAS RETURNED AND IS NOW A 9 ON PAIN SCALE. SECOND NORCO GIVEN BECAUSE SHE ONLY TOOK ONE AT HS. INSTRUCTED THAT SHE WOULD HAVE TO WAIT A FULL FOUR HOURS FOR NEXT PAIN PILL. VOICES UNDERSTANDING.
--- NOTE | 2020-07-24 04:57 | NUR ---
AWAKE AND ALERT. RESTING IN BED WITH RESPIRAITONS UNLABORED. NO DISTRESS NOTED. CAST IN PLACE TO LEFT LOWER LEG.
--- NOTE | 2020-07-24 04:58 | NUR ---
QUIET HOURS. RESTING IN BED WITH RESPIRATIONS UNLABORED. NO DISTRESS NOTED. CAST IN PLACE TO LEFT LOWER LEG.
[2020-07-24 07:49] VITALS: BP 165/71
--- NOTE | 2020-07-24 19:00 | RHP ---
PATIENT: SHAYNE NAVA MEDICAL RECORD: [id number] ACCOUNT: [id number] LOCATION:[facility]14 : 41 ADMISSION DATE: 07/21/20 REHABILITATION HISTORY AND PHYSICAL EXAMINATION POST ADMISSION PHYSICIAN EXAMINATION POST ADMISSION PHYSICAL EXAMINATION AND HISTORY AND PHYSICAL ADMITTING DIAGNOSIS: Left trimalleolar fracture. HISTORY OF PRESENT ILLNESS: The patient presented to the ER on 07/17/2020 for left ankle injury which she sustained while walking in her house. She was resided with her granddaughter and got around independently only using a cane. Really when she was outside the house, she fell, but does not really remember tripping or what happened, but after the fall, she complained of pain and deformity of her ankle. She was found to have a left ankle fracture. Closed reduction was initially done and splint applied with plans to have her to surgery on the . She was admitted to the medical floor. Preoperative workup was completed. She received pain control. Had a CT scan of her ankle. She has been on IV antibiotics for UTI and prophylactically postop. She has received IV morphine and Paw Paw for pain control, which she takes more frequently with activity. She is nonweightbearing and has had physical and occupational see her throughout her stay. She is receiving regular treatments for respiratory therapy and monitoring her oxygen levels. She does have oxygen at home that she uses at 2 liters, but requiring 3 liters here. Currently, secondary to her nonweightbearing status, she is having to hope in order to remain with this weightbearing status and she has very little strength. She will require OT and PT during her stay to retrain her on her ADLs and also the need to get around. She is also requiring some monitoring. She has had some tachycardia. She has also had some labile blood pressure with activity. Her labs have been followed closely. She has decreased activity tolerance, increased pain control, decreased strength proximal muscle weakness, balance deficit, decreased range of motion, gait disturbance, impaired mobility, dyspnea on exertion, high fall risk and self-care deficits. These are barriers to her discharge home at this time. She will require intensive therapy and medical management in order to return home as close to her prior level of functioning as possible. COMORBIDITIES: Include COPD, UTI. She has got emphysema, asthma, gastroesophageal reflux disease, chronic back pain, and anxiety. PAST MEDICAL HISTORY: Significant for COPD, emphysema, asthma, gastroesophageal reflux, chronic back pain, and anxiety. PAST SURGICAL HISTORY: Only as above. ALLERGIES: PENICILLIN AND SULFA. CURRENT MEDICATIONS: Include Floranex one cap daily. She is on DuoNeb updrafts q.i.d., Perforomist 20 mcg b.i.d., budesonide 0.5 mg b.i.d., Levaquin 500 mg daily, Paw Paw 5/325 one to two tabs q.4 hours p.r.n. She is on Xanax 0.25 mg t.i.d. p.r.n., Tylenol 1000 mg q.6 hours p.r.n., and polyethylene glycol 17 grams in 8 ounces of water daily. HABITS: No alcohol or tobacco use. HISTORY AND PHYSICAL [id number] SHAYNE NAVA FAMILY HISTORY: Noncontributory. SOCIAL HISTORY: The patient hopes to return back home and get back to her prior level of functioning. Once again, she lives with her granddaughter. REVIEW OF SYSTEMS: GENERAL: She does complain of some weakness and fatigue. HEENT: Denies cold, cough, or congestion. CARDIOVASCULAR: Denies any chest pain. PHYSICAL EXAMINATION: VITAL SIGNS: Stable and afebrile. GENERAL: An elderly female, in no acute distress upon exam. HEENT: Normocephalic and atraumatic. Mucosa moist. NECK: Supple. No lymphadenopathy. LUNGS: Clear in upper sa[place]. No wheeze or rales. HEART: Regular rate and rhythm. No murmurs, rubs or gallops. ABDOMEN: Soft, benign, nondistended. Positive bowel sounds times 4. EXTREMITIES: No clubbing, cyanosis. Her postop area looks pretty good. She is in a cast/dressing at this time. NEUROLOGIC: She does have some noted weakness. Her white count is 7.1, H&H of 9.5 and 30.5. Her platelet count is 336. Her sodium is 141, potassium 3.6, BUN and creatinine of 8 and 0.5 and blood sugar is noted to be 88. ASSESSMENT: A 80-year-old female patient admitted to the rehab with a working diagnosis of left trimalleolar fracture. The patient has potential to make improvement. We instituted the following multidisciplinary therapies including, not limited to physical, occupational, respiratory, speech, nutritional services, prosthetics and orthotics. Given her complex medical condition and risks for more complications, rehabilitation services cannot be provided at a low level of care such as skilled nurse facility. PLAN: 1. Admit to [facility] for inpatient therapy to include the following disciplines; A. Physical therapy to improve gait, all transfer skills and bed mobility to a modified independent level. B. Occupational therapy to improve activities of daily living. C. Case management to help with discharge planning and placement options. D. Nutrition to assist with nutritional needs. E. Rehabilitation nursing to assist in monitoring the patient's underlying medical conditions and to assist with any type of bowel or bladder management. 2. The patient's current medication and medical care will be continued. 3. Placed on standard fall precautions. 4. The patient's estimated length of stay is approximately 7-10 days. 5. Discuss this patient during care team staff meeting tomorrow. We will continue on appropriate medications. We will watch her on pain control and her blood pressure and titrated down on her O2. TRANSINT:[id number] Voice Confirmation ID: [id number] DOCUMENT ID: [id number] NINI notes whether there has been none or any medical/functional change since admission: HISTORY AND PHYSICAL [id number] SHAYNE NAVA - No change since preadmission screen. NINI attests patient continues to be appropriate for IRF: - Continues to be appropriate. LORY KELLER MD at 1900 CC: [id number] DICTATION DATE: 07/22/20 1208 COUNCIL ON AGING DIRECTOR: 07/22/20 1249 ADM IN [address] [place] [address]
--- NOTE | 2020-07-24 19:14 | NUR ---
AWAKE AND ALERT. RESTING IN BED WITH RESPRIATIONS UNLABORED. LEFT LEG CAST IN PLACE. NO DISTRESS NOTED. CALL LIGHT IN REACH.
[2020-07-24 21:49] VITALS: BP 85/55
--- NOTE | 2020-07-25 04:49 | NUR ---
QUIET HOURS. NO ACUTE CHANGES IN CONDITION THIS SHIFT. RESTING IN BED WITH NO DISTRESS NOTED.
[2020-07-25 07:51] LABS: BASOPHILS 0.2 % (0-2); HEMATOCRIT 28.7 % (36.0-48.0); HEMOGLOBIN 8.7 g/dL (12-16); LYMPHOCYTES 20.1 % (15-50); MCH 26.4 pg (26.0-34.0); MCHC 30.3 g/dL (31.0-37.0); MEAN PLATELET VOLUME 9.8 fL (7.4-10.4); MONOCYTES 11.2 % (2-11); NEUTROPHIL ABS# 3.92 10x3/uL (1.56-6.13); NEUTROPHILS 65.5 % (40-80); RDW 14.7 % (11.5-14.5)
[2020-07-25 07:57] LABS: PLATELET COUNT 415 10x3/uL (130-400)
[2020-07-25 08:02] LABS: CALC OSMOLALITY 279 mosm/kg (275-300); CARBON DIOXIDE 31.8 mmol/L (21.0-32.0); CHLORIDE - SERUM 104 mmol/L (98-107); CREATININE - SERUM 0.5 mg/dL (0.6-1.3); GLUCOSE 97 mg/dL (74-106); POTASSIUM - SERUM 3.8 mmol/L (3.5-5.1); SODIUM 141 mmol/L (136-145); UREA NITROGEN 11 mg/dL (7-18); eGFR NON AFRICAN AMERICAN > 90 mL/min (90-120)
[2020-07-25 08:20] VITALS: BP 151/74
--- NOTE | 2020-07-25 11:57 | NUR ---
LAYING IN BED QUIETLY RESTING. EYES CLOSED. RESP EFFORT NON LABORED. LLE ELEVATED ON PILLOWS AND STILL IN CAST WRAPED WITH KATALINA WRAP. CALL LIGHTIN REACH.
--- NOTE | 2020-07-25 13:39 | NUR ---
NUTRITION FOLLOW UP: COMMENTS: Patient praying before lunch and did not disturb patient during visit. Patient ate 0% for breakfast and has been experiencing a poor PO intake. DIET: Regular diet SUPPLEMENT: Ensure with meals PO INTAKE: 18% avg for last 4 meals WEIGHT: 07/22-100 lbs BM: x 1 on 07/23 SIG MEDS: Probiotic SIG LABS: Cr-0.5 RECOMMENDATIONS: Continue Regular Diet Continue Ensure with meals Consider appetite stimulant such as Megace Encourage PO intake Assistance with meals if needed RD to follow up within 7 days
--- NOTE | 2020-07-25 18:45 | NUR ---
BEDSIDE REPORT COMPLETED. RECEIVED PT SITTING UP IN BED. ALERT AND ORIENTED X4. DENIES ANY NEEDS OR PAIN. CONTINUES ON O2/3L VIA NC. NO DISTRESS NOTED. NO IV NOTED. LEFT CAST FROM FOOT TO BELOW KNEE INTACT. +2 EDEMA NOTED. RIGHT FOOT +2 EDEMA NOTED. CALL LIGHT AND WATER WITHIN REACH. JEFF ALARM ON. CPOC
[2020-07-25 20:24] VITALS: BP 80/42
--- NOTE | 2020-07-25 23:47 | NUR ---
PT LYING IN BED WATCHING TV. DENIES ANY NEEDS. NO DISTRESS NOTED. CONTINUES ON O2/3L VIA NC. CALL LIGHT WITHIN REACH. JEFF ALARM ON
--- NOTE | 2020-07-26 02:59 | NUR ---
PT LYING IN BED AWAKE. C/O 6/10 BURNING ACHING LEFT LE PAIN. REQUESTS PAIN MEDICATION. WILL ADMININISTER APPROPRIATELY PER ORDERS. NO OTHER NEEDS VOICED. NO DISTRESS NOTED. ICE PACK APPLIED TO LLE. JEFF ALARM ON. CALL LIGHT WITHIN REACH.
--- NOTE | 2020-07-26 05:54 | NUR ---
PT LYING IN BED EYES CLOSED RESTING. CONTINUES ON O2/3L VIA NC. NO ACUTE CHANGES IN CONDITION THIS SHIFT. RR EVEN AND UNLABORED. HOB ELEVATED. CALL LIGHT WITHIN REACH. JEFF ALARM ON
[2020-07-26 08:55] VITALS: BP 125/63
--- NOTE | 2020-07-26 09:39 | NUR ---
SITTING UP IN WC IN THERAPY GYM. DENIES INCREASED PAIN OR ANXIETY AT PRESENT. LLE STILL IN CAST. DENIES NEEDS.
--- NOTE | 2020-07-26 18:45 | NUR ---
BEDSIDE REPORT COMPLETED. RECEIVED PT LYING IN BED EYES CLOSED RESTING. EASILY AROUSED WITH STIMULI. ALERT AND ORIENTED X4. DENIES ANY NEEDS OR PAIN. NO DISTRESS NOTED. CONTINUES ON O2/3L VIA NC. LEFT LE ELEVATED ON PILLOW, CAST WITH KATALINA WRAP INTACT. CALL LIGHT AND WATER WITHIN REACH. JEFF ALARM ON. CPOC
[2020-07-26 21:22] VITALS: BP 117/77
--- NOTE | 2020-07-26 23:26 | NUR ---
PT LYING IN BED EYES CLOSED RESTING. RR EVEN AND UNLABORED. HOB ELEVATED. JEFF ALARM ON
--- NOTE | 2020-07-27 03:43 | NUR ---
PT LYING IN BED EYES CLOSED RESTING. HOB ELEVATED. RR EVEN AND UNLABORED. CALL LIGHT WITHIN REACH. JEFF ALARM ON.
[2020-07-27 09:02] VITALS: BP 133/65
--- NOTE | 2020-07-27 09:05 | NUR ---
C/O PAIN TO LLE. PAIN MEDS GIVEN ORDERED AND REQUESTED. CALL LIGHT IN REACH
[2020-07-27 19:00] VITALS: BP 145/64
--- NOTE | 2020-07-27 21:27 | NUR ---
PT ASSESSED, SOFT CAST TO LLE, PEDAL PULSE'S STRONG. STANDBY ASSIST TO BSC, PT WITH DYSPNEA UPON EXERTION, 02 VIA NC @2L. PRN NORCO AND XANAX GIVEN PER PT REQUEST. PT AAOX4. CALL LIGHT WITHIN REACH, NO COMPLAINTS VOICED AT THIS TIME.
--- NOTE | 2020-07-28 02:49 | NUR ---
PT WOKE WITH PAIN RATE 7/10 TO LLE, GAVE PRN NORCO PER PT REQUEST. CALL LIGHT WITHIN REACH, WILL CONT TO MONITOR.
[2020-07-28 08:07] LABS: BASOPHILS 0.3 % (0-2); EOSINOPHILS 3.1 % (0-7); HEMOGLOBIN 9.2 g/dL (12-16); IMMATURE GRANULOCYTES 0.5 % (0-5); LYMPHOCYTE ABS# 1.49 10x3/uL (1.18-3.74); LYMPHOCYTES 22.9 % (15-50); MCH 26.9 pg (26.0-34.0); MCHC 30.7 g/dL (31.0-37.0); MCV 87.7 fL (80.0-100.0); MEAN PLATELET VOLUME 9.1 fL (7.4-10.4); MONOCYTES 11.7 % (2-11); NEUTROPHIL ABS# 4.02 10x3/uL (1.56-6.13); NEUTROPHILS 61.5 % (40-80); PLATELET COUNT 474 10x3/uL (130-400); RBC 3.42 10x6/uL (4.00-5.40); RDW 14.9 % (11.5-14.5); WBC 6.5 10x3/uL (4.8-10.8)
[2020-07-28 08:20] LABS: CALC OSMOLALITY 273 mosm/kg (275-300); CALCIUM 8.7 mg/dL (8.5-10.1); CARBON DIOXIDE 30.5 mmol/L (21.0-32.0); CHLORIDE - SERUM 102 mmol/L (98-107); CREATININE - SERUM 0.6 mg/dL (0.6-1.3); GLUCOSE 111 mg/dL (74-106); SODIUM 137 mmol/L (136-145); UREA NITROGEN 9 mg/dL (7-18); eGFR NON AFRICAN AMERICAN > 90 mL/min (90-120)
[2020-07-28 08:24] VITALS: BP 140/59
--- NOTE | 2020-07-28 12:31 | NUR ---
SITTING UP IN BED WITH EYES CLOSED. JUST GAVE ANXIETY MED AT HER REQUEST. APPETITIE POOR TO FAIR. DENIES N/V. C/O BEING ANXIOUS. LLE STILL IN CAST
--- NOTE | 2020-07-28 12:43 | NUR ---
Nutrition Follow-up: Diet: Regular + Ensure TID PO intake: ~15% average x last 6 meals. She states that her appetite is "not too good." She is very complimentary of kitchen/ambassador staff. States that she is able to drink 1-2 Ensure per day. Last BM: 07/23/20 Wt: 100# (07/22/20) Meds noted: probiotics, abx Labs noted: Glu 111(H) Recommend continue current diet and oral nutrition supplements. Recommend MD to consider adding appetite stimulant as medically feasible. RD will follow-up 08/01/20.
--- NOTE | 2020-07-28 17:47 | NUR ---
PT ASKED FOR ONE PAIN MED AT FIRST. WHEN NURSE OPEN PKG FOR PT SHE THEN DECIDED SHE WANTED TWO......NURSE RETRIEVED ANOTHER 5MG TAB TO MAKE UP THE ORDER FOR TWO.
--- NOTE | 2020-07-28 19:29 | NUR ---
AWAKE AND ALERT. RESTING IN BED WITH RESPIRAITONS UNLABORED. LEFT LOWER LEG CAST IN PLACE. O2/3L ON PER NASAL CANNULA. NO ACUTE DISTRESS NOTED.
[2020-07-28 19:33] VITALS: BP 141/63
--- NOTE | 2020-07-29 05:06 | NUR ---
QUIET HOURS. NO ACUTE CHANGES IN CONDITION THIS SHIFT. MEDICATED FOR PAIN SEVERAL TIMES THIS SHIFT. SEE MAR. CAST IN PLACE TO LEFT LEG.
[2020-07-29 07:40] VITALS: BP 132/58
[2020-07-29 20:32] VITALS: BP 116/56
--- NOTE | 2020-07-30 01:50 | NUR ---
RECIEVED PATIENT IN BED, ALERT AND ORIENTED, CALL LIGHT AND WATER IN REACH, SIDE RAILS UP X 2 , NO DISTRESS NOTED, CAST LEFT ANKLE, O2 AT 2 LITERS VIA NASAL CANULA.
--- NOTE | 2020-07-30 01:52 | NUR ---
PRN NORCO 5 X 2 TABS GIVEN FOR LEG PAIN AT 21:41, PRN XANAX 0.25 MG GIVEN FOR ANXIETY AT 21:41. MEDICATION TOLERATED WELL. REASSESSED AT 22:15 AND PATIENT WAS SLEEPING.
--- NOTE | 2020-07-30 04:27 | NUR ---
PATIENT GIVEN NORCO 5 FOR LEG PAIN 6 OF 10 AT 04:25.
[2020-07-30 06:53] LABS: CALC OSMOLALITY 275 mosm/kg (275-300); CALCIUM 8.8 mg/dL (8.5-10.1); CARBON DIOXIDE 31.4 mmol/L (21.0-32.0); CHLORIDE - SERUM 104 mmol/L (98-107); CREATININE - SERUM 0.6 mg/dL (0.6-1.3); GLUCOSE 87 mg/dL (74-106); POTASSIUM - SERUM 4.2 mmol/L (3.5-5.1); SODIUM 139 mmol/L (136-145); UREA NITROGEN 11 mg/dL (7-18); eGFR NON AFRICAN AMERICAN > 90 mL/min (90-120)
[2020-07-30 06:57] LABS: BASOPHILS 0.2 % (0-2); EOSINOPHILS 2.2 % (0-7); HEMATOCRIT 29.8 % (36.0-48.0); HEMOGLOBIN 9.3 g/dL (12-16); IMMATURE GRANULOCYTES 0.1 % (0-5); LYMPHOCYTE ABS# 1.35 10x3/uL (1.18-3.74); LYMPHOCYTES 16.5 % (15-50); MCH 27.3 pg (26.0-34.0); MCHC 31.2 g/dL (31.0-37.0); MCV 87.4 fL (80.0-100.0); MEAN PLATELET VOLUME 9.1 fL (7.4-10.4); MONOCYTES 10.8 % (2-11); NEUTROPHIL ABS# 5.72 10x3/uL (1.56-6.13); NEUTROPHILS 70.2 % (40-80); PLATELET COUNT 523 10x3/uL (130-400); RBC 3.41 10x6/uL (4.00-5.40)
[2020-07-30 07:08] LABS: WBC 8.2 10x3/uL (4.8-10.8)
[2020-07-30 08:05] VITALS: BP 137/60
--- NOTE | 2020-07-30 16:12 | NUR ---
CARE TEAM MEETING: PATIENT IS DOING WELL IN THERAPY. HER PCP IS DR. MELÉNDEZ AND HER TENATIVE DC DATE IS 08/04/20. DISCHARGE PLANS ARE FOR HER TO RETURN TO HER HOME. WILL CONTINUE TO FOLLOW WITH PATIENT.
--- NOTE | 2020-07-30 19:30 | NUR ---
PT IN BED, NO IMMEDIATE NEEDS NOTED, FLUIDS/CL WITHIN REACH
[2020-07-30 20:40] VITALS: BP 116/62
[2020-07-31 07:56] VITALS: BP 145/72
[2020-07-31 19:30] VITALS: BP 140/68
--- NOTE | 2020-08-01 02:37 | NUR ---
ASSISTED PT TO BEDSIDE COMMODE. SHE VOIDED. SHE DENIES PAIN OR NEEDS AT THIS TIME. HER BED IS LOW, BED ALARM ON AND CALL LIGHT IS WITHIN REACH.
[2020-08-01 07:48] VITALS: BP 139/64
--- NOTE | 2020-08-01 08:00 | NUR ---
PT RESTING IN BED WITH EYES OPEN CALL LIGHT IN REACH WILL MONITER
[2020-08-01 08:09] LABS: BASOPHILS 0.3 % (0-2); EOSINOPHILS 1.1 % (0-7); HEMATOCRIT 30.1 % (36.0-48.0); HEMOGLOBIN 9.3 g/dL (12-16); IMMATURE GRANULOCYTES 0.3 % (0-5); LYMPHOCYTE ABS# 1.69 10x3/uL (1.18-3.74); LYMPHOCYTES 23.9 % (15-50); MCH 26.6 pg (26.0-34.0); MCHC 30.9 g/dL (31.0-37.0); MONOCYTES 11.3 % (2-11); NEUTROPHIL ABS# 4.46 10x3/uL (1.56-6.13); NEUTROPHILS 63.1 % (40-80); PLATELET COUNT 505 10x3/uL (130-400); RDW 14.8 % (11.5-14.5); WBC 7.1 10x3/uL (4.8-10.8)
[2020-08-01 08:32] LABS: CALC OSMOLALITY 280 mosm/kg (275-300); CALCIUM 8.6 mg/dL (8.5-10.1); CARBON DIOXIDE 27.7 mmol/L (21.0-32.0); CHLORIDE - SERUM 104 mmol/L (98-107); CREATININE - SERUM 0.4 mg/dL (0.6-1.3); GLUCOSE 92 mg/dL (74-106); POTASSIUM - SERUM 4.4 mmol/L (3.5-5.1); SODIUM 141 mmol/L (136-145); UREA NITROGEN 13 mg/dL (7-18); eGFR NON AFRICAN AMERICAN > 90 mL/min (90-120)
--- NOTE | 2020-08-01 12:19 | NUR ---
Nutrition Re-Assessment: Diet: Regular + Ensure TID PO intake: none recorded recently, was 10-20% (07/26-07/27). Patient states that she continues to have no appetite. She makes herself eat. Has several snacks on bedside table, states that she snacks throughout the day. She is drinking 1-2 Ensure per day. Last BM: 08/01/20 Wt: 100# (07/22/20) Meds noted: probiotics Labs reviewed Estimated nutrition needs: 4530-2234 jordan (25-35 IBW), 52-63gms protein (1-1.2), 1300-1575mL fluid (or per MD) Nutrition diagnosis: Inadequate energy intake r/t inadequate oral intake, decreased appetite AEB PO intake of ~10-20% of meal, patient report of poor appetite. Nutrition goals: -PO intake will increase to >65% meals -Meet fluid needs -Stable weight DHS Recommendations/Interventions: -Needs new weight -Continue regular diet and oral nutrition supplements. Will continue to honor food preferences. -Enocuraged PO intake -MD consider adding appetite stimulant as medically feasible. -RD will follow-up 08/05/20.
--- NOTE | 2020-08-01 14:15 | NUR ---
I have reviewed this patient and I concur with the Shift Assessment completed by the Licensed Practical Nurse today this shift.
[2020-08-01 19:34] VITALS: BP 148/66
--- NOTE | 2020-08-01 20:00 | NUR ---
PATIENT RECEIVED SITTING UP IN LOW BED. ASSESSMENT & VITAL SIGNS DONE. ALARM ON. CALL LIGHT & VITAL SIGNS DONE. WILL CONTINUE TO MONITOR.
--- NOTE | 2020-08-02 00:09 | NUR ---
PATIENT USED CALL LIGHT FOR ASSIST. PATIENT STOOD & PIVOTED ON RIGHT LEG ONTO BEDSIDE COMMODE. STANDBY ASSIST. VOID ONLY. PATIENT INDEPENDENT WITH PERICARE. PATIENT STANDBY ASSIST BACK INTO BED. PATIENT REQUEST FOR PAIN MEDICATION & ANXIETY PILL. BOTH WERE GIVEN TO PATIENT. BED LOW. ALARM ON. CALL LIGHT WITHIN REACH. WILL CONTINUE TO MONITOR.
--- NOTE | 2020-08-02 01:13 | NUR ---
I have reviewed this patient and I concur with the Shift Assessment completed by the Licensed Practical Nurse today this shift.
--- NOTE | 2020-08-02 04:28 | NUR ---
PATIENT EYES CLOSED. RESPIRATIONS 18 & EVEN. BED LOW. CALL LIGHT WITHIN REACH. ALARM ON. WILL CONTINUE TO MONITOR.
[2020-08-02 07:00] VITALS: BP 132/64
--- NOTE | 2020-08-02 07:45 | NUR ---
SHE IS C/O PAIN IN HER LEFT LEG, PRN GIVEN. SHE IS WEARING 2 LITERS NC. THE CALL LIGHT IS WITHIN REACH.
[2020-08-02 19:12] VITALS: BP 130/64
--- NOTE | 2020-08-02 19:41 | NUR ---
PATIENT RECEIVED SITTING IN BED. ASSESSMENT & VITAL SIGNS DONE. NO C/O PAIN OR DISTRESS. BED LOW. ALARM ON. CALL LIGHT WITHIN REACH. WILL CONTINUE TO MONITOR.
--- NOTE | 2020-08-03 00:59 | NUR ---
I have reviewed this patient and I concur with the Shift Assessment completed by the Licensed Practical Nurse today this shift.
--- NOTE | 2020-08-03 04:08 | NUR ---
PATIENT USED CALL LIGHT FOR ASSIST. PATIENT ASKED FOR ONE PAIN PILL. THIS NURSE PULLED ONE PAIN MED. PATIENT CHANGED HER MIND. PAIN LEVEL 6 TO LEFT ANKLE. ANOTHER PAIN MEDICATION TAKEN OUT OF PYXIS. MED ORDER WRITTEN IF PAIN IS 6 OR ABOVE 2 PAIN PILLS.CALL LIGHT WITHIN REACH. WILL CONTINUE TO MONITOR.
--- NOTE | 2020-08-03 04:17 | NUR ---
PATIENT C/O CONSTIPATION. MIRALAX GIVEN.
[2020-08-03 08:00] VITALS: BP 151/68
[2020-08-03 19:00] VITALS: BP 139/57
--- NOTE | 2020-08-03 19:41 | NUR ---
AWAKE AND ALERT. RESTING IN BED WITH RESIRATIONS UNLABORED. NO ACUTE DISTRESS NOTED. CALL LIGHT IN REACH.
--- NOTE | 2020-08-04 06:21 | NUR ---
QUIET HOURS. NO ACUTE CHANGES IN CONDITION THIS SHIFT. RESTING IN BED WITH NO DISTRESS NOTED. CAST IN PLACE TO LEFT LOWER LEG.
[2020-08-04 08:30] VITALS: BP 138/60
[2020-08-04] MEDS ORDERED: HYDROCODON-ACE1 EAC7 PO (08:54)
[2020-08-04 09:01] LABS: BASOPHILS 0.2 % (0-2); EOSINOPHILS 1.6 % (0-7); HEMOGLOBIN 10.3 g/dL (12-16); IMMATURE GRANULOCYTES 0.3 % (0-5); LYMPHOCYTE ABS# 1.65 10x3/uL (1.18-3.74); LYMPHOCYTES 16.9 % (15-50); MCH 26.8 pg (26.0-34.0); MCHC 31.2 g/dL (31.0-37.0); MCV 85.9 fL (80.0-100.0); MEAN PLATELET VOLUME 9.2 fL (7.4-10.4); MONOCYTES 6.3 % (2-11); NEUTROPHIL ABS# 7.31 10x3/uL (1.56-6.13); NEUTROPHILS 74.7 % (40-80); PLATELET COUNT 521 10x3/uL (130-400); RBC 3.84 10x6/uL (4.00-5.40); RDW 14.5 % (11.5-14.5); WBC 9.8 10x3/uL (4.8-10.8)
[2020-08-04 09:14] LABS: CALC OSMOLALITY 269 mosm/kg (275-300); CALCIUM 9.3 mg/dL (8.5-10.1); CARBON DIOXIDE 32.5 mmol/L (21.0-32.0); CHLORIDE - SERUM 99 mmol/L (98-107); CREATININE - SERUM 0.6 mg/dL (0.6-1.3); GLUCOSE 113 mg/dL (74-106); SODIUM 135 mmol/L (136-145); UREA NITROGEN 11 mg/dL (7-18); eGFR NON AFRICAN AMERICAN > 90 mL/min (90-120)
--- NOTE | 2020-08-04 11:32 | NUR ---
REFERRAL HAS BEEN FAXED PER PATIENT REQUEST TO [facility] AND HS BEEN ACCPETED . SHE WILL DISCHARGE TO [facility] 08/05/20 [facility]IA [facility]. WILL CONTINUE TO FOLLOW WITH PATIENT.
[2020-08-04 12:29] LABS: SARS-CoV-2 ANTIGEN NEGATIVE- SARS-COV-2 (NEGATIVE)
--- NOTE | 2020-08-04 13:26 | NUR ---
SITTING UP IN BED, EYES CLOSED. NO S/S DISTRESS OR PAIN NOTED. LLE IN CAST. CALL LIGHT IN REACH
--- NOTE | 2020-08-04 18:45 | NUR ---
BEDSIDE REPORT COMPLETE. RECEIVED PT SITTING UP IN BED. ALERT AND ORIENTED X4. DENIES ANY NEEDS OR PAIN. CONTINUES ON O2/2L VIA NC. LEFT LE CAST INTACT. NO DISTRESS NOTED. CALL LIGHT AND WATER WITHIN REACH. JEFF ALARM ON. CPOC
[2020-08-04 21:25] VITALS: BP 113/54
--- NOTE | 2020-08-05 00:42 | NUR ---
PT LYING IN BED EYES CLOSED RESTING. HOB ELEVATED. RR EVEN AND UNLABORED. JEFF ALARM ON
--- NOTE | 2020-08-05 04:04 | NUR ---
PT LYING IN BED EYES CLOSED RESTING. RR EVEN AND UNLABORED. JEFF ALARM ON
[2020-08-05 07:46] VITALS: BP 149/68
--- NOTE | 2020-08-05 09:40 | NUR ---
PATIENT DISCHARGING TO [facility]IA [facility]. NO HOME HEALTH OR DME NEEDED AT THIS TIME. EFREN SIGNED, IMM SERVED AND EXPLAINED ONE GIVEN TO PATIENT AND ONE FILED IN CHART. NO COMPARE DATA REVIEWED PATIENT FAMILY CHOSE FACILITY. APPOINTMENTS WITH DR. MELÉNDEZ AND DR. BAR WILL BE MADE AT TIME OF DISCHARGE FROM FACILITY. DC INSTRUCTIONS FAXED TO SNF, PCP AND REVIEWED WITH PATIENT.
--- NOTE | 2020-08-05 12:39 | NUR ---
REPORT CALLED TO [facility]. SPOKE WITH BYRON COLEMAN LPN.
== END 2020-08-05 13:30 | DRG 560 ==
LOC: D.REHAB 17:42
PROVIDERS: ADMIT Emergency Medicine; ATTEND Emergency Medicine
DX: S82.852D Displaced trimalleolar fracture of left lower leg, subsequent encounter for closed fracture with routine healing (principal); N39.0 Urinary tract infection, site not specified; W19.XXXD Unspecified fall, subsequent encounter; J43.9 Emphysema, unspecified; K21.9 Gastro-esophageal reflux disease without esophagitis; F41.9 Anxiety disorder, unspecified; G89.29 Other chronic pain; M54.9 Dorsalgia, unspecified; J45.909 Unspecified asthma, uncomplicated